=== PATIENT | female | born 1945 | race Caucasian/White ===

== ENCOUNTER 2020-05-13 18:28 | Inpatient (IN) | payer MEDICARE ==
[~2020-05-13] VITALS: Ht 142.2 cm; Wt 72.8 kg
[~2020-05-13 18:28] MED LIST: ALLEGRA180 MG PO; CALCITRIOL PO; CALTRATE-600 W600 MG PO; CARAFATE S1 GM/10 ML PO; CLONAZEPAM1 MG PO; CYMBALTA; D-31000 IU PO; DESYREL DIVIDO150 M1 PO; FEXOFENADINE180 MG PO; FLEXERIL10 MG PO; HYDROXYZINE50 MG PO; LASIX 20MG TABL20 MG PO; LASIX 40MG TABL40 MG PO; LEVAQUIN 5500 MG/TA1 PO; LEVOTHROID0.088 MG PO; LORTAB 10/500 51 TAB PO; LORTAB 7.5/5001 TAB; MECLIZINE25 MG PO; METHADONE H10 MG/TAB PO; MULTIPLE VITAMI1 TAB PO; MVI PO; NEURONTIN300 MG/CAP PO; NEXIUM 40MG40 MG PEG; NEXIUM 40MG40 MG PO; NORVASC 10MG10 MG PO; NORVASC 5MG5 MG/TAB PO; PREDNISONE20 MG PO; PRIL40 PO; PRILOSEC40 MG PO; PRISTIQ100 MG PO; PROTONIX40 MG/Pack PO; REGLAN 10MG10 MG/TAB PO; RELAFEN750 MG PO; SIMVASTATIN40 MG PO; SODIUM BICARBO650 MG PO; SUPER B COMPLEX1 TA2 PO; SYNTHROID0.112 MG/T PO; TOBRADEX EYE DRO5 ML OP; TRILIPIX45 MG PO; TUMS ULTRA ST1000 MG PO; TYLENOL 325MG325 MG PO; TYLENOL 500MG500 MG PO; ULTRAM 50MG TAB50 MG PO; VICODIN ES PO; VITAMIN D1000 IU PO; VOLTAREN GEL 1%1 TU TP; WELCHOL 625MG625 MG PO
--- NOTE | 2020-05-14 09:00 | NUR ---
Patient arrived to the floor at this time. She is alert and oriented at this time. No complaints other than mild pain which she request tylenol for. States that she wants to be in her own night gown, I stated that this was fine. SHe is able to get around on her own, states she is independent at home. IV started in her right FA, as left was vein mapped for possible vistula placement. Swelling is evident. Will continue to monitor. Call light is in reach.
[2020-05-14 10:04] LABS: BASO # 0.1 (0.0-0.2); EOS # 0.4 (0.0-0.7); EOS % 7.1 % (0-4.0); GRAN # 3.8 (1.4-6.5); GRAN % 65.8 % (42.2-75.2); LYMPH % 17.4 % (20.0-51.0); MEAN CELL VOLUME 99 fl (80.0-100.0); MEAN CORPUSCULAR HGB CONC 31 g/dl (33.0-37.0); MEAN PLATELET VOLUME 10.7 fl (7.4-10.4); MONO # 0.5 (0.1-0.6); MONO % 8.4 % (1.7-9.3); PLATELET COUNT 164 K/mm3 (130-400); RED BLOOD COUNT 2.25 M/mm3 (4.10-5.30); REDCELL DISTRIBUTION WIDTH-CV 14.7 % (11.5-14.5)
[2020-05-14] MEDS ORDERED: TYLENOL 500MG500 MG PO (10:04)
[2020-05-14] MEDS ORDERED: NORVASC 5MG5 MG/TAB PO (10:07)
[2020-05-14] MEDS ORDERED: CEFTIN 250250 MG/TAB PO (10:10)
[2020-05-14] MEDS ORDERED: LASIX 20MG TABL20 MG PO (10:12)
[2020-05-14] MEDS ORDERED: ANTI-DIARRHEAL2 MG PO (10:14)
[2020-05-14 10:15] LABS: ALBUMIN 3.1 gm/dL (3.5-5.0); BILIRUBIN,TOTAL 0.2 mg/dL (0.0-1.0); CALCIUM 7.3 mg/dL (8.4-10.2); CREATININE, serum 5.89 (0.52-1.25); PHOSPHOROUS 7.5 mg/dL (2.5-4.5); POTASSIUM 4.5 mmol/L (3.4-5.0)
[2020-05-14] MEDS ORDERED: SODIUM BICARBO650 MG PO (10:16)
[2020-05-14 10:20] LABS: HEMATOCRIT 22.3 % (37.0-47.0); MEAN CORPUSCULAR HEMOGLOBIN 31 pg (27.0-31.0)
[2020-05-14 10:21] LABS: HEMOGLOBIN 6.9 g/dl (12.5-16.0)
[2020-05-14 11:06] VITALS: BP 166/73; PULSE 73; TEMP 98.6
[2020-05-14 11:45] LABS: IRON,SERUM 55 ug/dL (35-150)
[2020-05-14 11:51] LABS: TOTAL IRON BINDING CAPACITY 283 ug/dL (265-497)
[2020-05-14 15:19] VITALS: BP 174/79; PULSE 77; TEMP 98.6
--- NOTE | 2020-05-14 17:27 | NUR ---
Patient has had a good day, rested for most of it. no complaints of discomfort. IV site remains CD&I. Bumex drip running at 5 ml/hr, no issues. She is aware of her fluid restriction and manages this. Will continue to monitor. Call light is in reach.
[2020-05-14 20:04] VITALS: BP 165/69; PULSE 82; TEMP 98.9
--- NOTE | 2020-05-14 21:35 | NUR ---
Pt assessment completed and documented. Pt sleeping when RN entered room. Pt alert and oriented x4. Complaints of generalized pain. Scheduled tylenol q6hr. Pt denies need for additional pain medication at this time. IV bumex infusing per orders. Pt refusing to wear hospital socks or shoes with transfers stating she feels safer with bare feet. Pt denies any needs/concerns. Call light within reach. Will continue to monitor.
[2020-05-14 23:11] VITALS: BP 157/64; PULSE 78; TEMP 98.9
[2020-05-15] VITALS (10 sets, daily range): BP systolic 150–200; BP diastolic 61–86; PULSE 67–78; TEMP 97.4–98.8
--- NOTE | 2020-05-15 06:05 | NUR ---
Pt currently sitting up in bed playing game on cell phone. Scheduled tylenol given throughout the night for generalized pain. Bumex infusing per orders to right forearm IV. Pt denies any needs/concerns. Call light within reach
[2020-05-15] MEDS ORDERED: TOBRADEX EYE DRO5 ML OP (08:41)
--- NOTE | 2020-05-15 09:29 | NUR ---
Pt assessment completed and charted, medications administered per sep. Pt is A&O, independent in room, on room air, breathing is even and unlabored. Pt c/o of general/chronic pains "all over", receiving tylenol PRN Q6 per sep. pt denies SOB, N/V/D. Pt states she takes immodium regularly, had a BM this morning and it was formed. Pt states her breathing feels much better. BLE edema 1-2+, feet 2-3+ edema but has improved per pt. Pulses strong bilaterally, pedal pulses present, HRRR. LS cta, BS active. RFA IV w/ bumex gtt at 5ml/hr. Fluid restriction discussed, pt verbalizes understanding, will need review. BP of 200/81 this morning, Michelle RN w/ Gian aware, hydralazine PRN administered per sep. Will recheck BP. Pt denies chest pain, dizziness or other complaints at this time. Call light within reach.
[2020-05-15 10:04] LABS: BASO # 0.1 (0.0-0.2); EOS # 0.3 (0.0-0.7); EOS % 5.3 % (0-4.0); GRAN # 3.6 (1.4-6.5); GRAN % 61.8 % (42.2-75.2); LYMPH # 1.4 (1.2-3.4); LYMPH % 23.8 % (20.0-51.0); MEAN CELL VOLUME 98 fl (80.0-100.0); MEAN CORPUSCULAR HGB CONC 30 g/dl (33.0-37.0); MEAN PLATELET VOLUME 10.9 fl (7.4-10.4); MONO # 0.5 (0.1-0.6); MONO % 7.9 % (1.7-9.3); PLATELET COUNT 177 K/mm3 (130-400); RED BLOOD COUNT 2.27 M/mm3 (4.10-5.30); REDCELL DISTRIBUTION WIDTH-CV 14.8 % (11.5-14.5)
[2020-05-15 10:11] LABS: HEMATOCRIT 22.3 % (37.0-47.0); MEAN CORPUSCULAR HEMOGLOBIN 30 pg (27.0-31.0)
[2020-05-15 10:13] LABS: HEMOGLOBIN 6.7 g/dl (12.5-16.0)
[2020-05-15 10:15] LABS: ALBUMIN 2.8 gm/dL (3.5-5.0); CALCIUM 7.1 mg/dL (8.4-10.2); CREATININE, serum 6.15 (0.52-1.25); PHOSPHOROUS 7.4 mg/dL (2.5-4.5); POTASSIUM 4.3 mmol/L (3.4-5.0)
--- NOTE | 2020-05-15 10:29 | NUR ---
SW met with the patient to discuss discharge plan. The patient lives in [place] with her son, Elieser (ph#[phone]). She reports independence with ADLs and has a walker and electric scooter. Her primary care provider is ANGELINE Hayden and she receives her medications by delivery from [facility]. This SW witnessed the patient complete a DPOA-HC during her hospital stay in March. The patient designated her son, Elieser. The patient confirms that Elieser is her DPOA-HC. The patient's DPOA-HC is not in EMR. SW notified Medical Records. The patient's son does not have a vehicle. The patient states that she utilizes the [employer] bus. The patient plans to return home upon discharge. OT is recommending home with maybe home health. SW discussed home health with the patient and their benefits. The patient states that she had home health in the past and it was not helpful to her. She states that she is fine and does not want home health upon discharge. OMAR then contacted and reviewed the above information with the patient's son, Elieser. Elieser confirmed the above information and states that he does not have any concerns about the patient returning back home with him. Elieser states that he does have the patient's DPOA-HC at home. SW to continue to follow.
--- NOTE | 2020-05-15 10:35 | NUR ---
Critical lab value Hgb 6.7, decreased from yesterday called to CANDI truong who notified Dr. Springer.
--- NOTE | 2020-05-15 18:13 | NUR ---
Pt Nulecit started. Blood transfusion to start after on nightshift. Hydralazine administered per mar w/ SBP at 191.
--- NOTE | 2020-05-15 22:30 | NUR ---
Pt assessment completed and documented. Pt resting in bed at this time. Alert and oriented x4. Pt reporting generalized pain. Pt tolerating blood transfusion without complications. Pt denies any needs/ concerns. Call light within reach. Will continue to monitor.
[2020-05-16] VITALS (14 sets, daily range): BP systolic 135–182; BP diastolic 57–75; PULSE 60–70; TEMP 97.3–97.9
--- NOTE | 2020-05-16 01:30 | NUR ---
First unit of blood transfused without complications. VSS. Will administer second unit at this time per orders.
[2020-05-16 06:58] LABS: BASO # 0.1 (0.0-0.2); EOS # 0.3 (0.0-0.7); EOS % 5.4 % (0-4.0); GRAN # 4.1 (1.4-6.5); GRAN % 64.6 % (42.2-75.2); LYMPH # 1.3 (1.2-3.4); LYMPH % 20.1 % (20.0-51.0); MEAN CELL VOLUME 94 fl (80.0-100.0); MEAN CORPUSCULAR HGB CONC 32 g/dl (33.0-37.0); MEAN PLATELET VOLUME 10.7 fl (7.4-10.4); MONO # 0.5 (0.1-0.6); MONO % 8.4 % (1.7-9.3); PLATELET COUNT 160 K/mm3 (130-400); RED BLOOD COUNT 3.02 M/mm3 (4.10-5.30); REDCELL DISTRIBUTION WIDTH-CV 15.3 % (11.5-14.5)
[2020-05-16 07:00] LABS: HEMATOCRIT 28.3 % (37.0-47.0); HEMOGLOBIN 9.1 g/dl (12.5-16.0); MEAN CORPUSCULAR HEMOGLOBIN 30 pg (27.0-31.0)
[2020-05-16 07:12] LABS: INR 0.9 (0.8-3.0); PROTHROMBIN TIME 10.5 SECONDS (9.7-12.8)
[2020-05-16 07:13] LABS: PARTIAL THROMBOPLASTIN TIME 36.8 SECONDS (26.0-37.0)
[2020-05-16 07:14] LABS: ALBUMIN 2.7 gm/dL (3.5-5.0); CALCIUM 7.5 mg/dL (8.4-10.2); CREATININE, serum 5.7 (0.52-1.25); PHOSPHOROUS 7.4 mg/dL (2.5-4.5); POTASSIUM 4.3 mmol/L (3.4-5.0)
--- NOTE | 2020-05-16 08:02 | NUR ---
Report given to CANDI Arias
--- NOTE | 2020-05-16 11:01 | NUR ---
Pt assessment completed and charted. Medications administered this morning per sep w/ sips of water. Pt c/o general/"normal" aches and pains, takes tylenol regularly, given PRN per SEP. Pt denies dizziness, SOB, N/V/D, chest pain, abdominal pain, numbness or tingling. Pulses strong bilaterally, HRRR, LS cta, BS active. Pt on room air, breathing is even and unlabored.Pt has 2 22G RFA INT IVs that both flush well. Hgb improved from last night and pt tolerated blood transfusions well. I&Os being tracked and recorded. Pt to have dialysis cath and fistula placed this afternoon. Consent signed. Pt frustrated that she feels she "didn't know the plan until last minute". Pt expresses concerns about transportation to and from dialysis. Will discuss w/ SW. No other needs at this time. Call light within reach.
--- NOTE | 2020-05-16 12:29 | NUR ---
Pt SBP 178, hydralazine PRN administered per mar. Pt to have dialysis cath/fistula palcement this afternooon, preop fluids hung to RFA, no issues. CANDI Chacko w/ Dr. Springer, in to assess patient. All questions answered. No further needs.
--- NOTE | 2020-05-16 13:15 | NUR ---
Pt down for procedure at this time, via bed w/ Jose Maria from surgery
[2020-05-16] MEDS ORDERED: NORCO 325 MG-51 TAB PO (16:11)
--- NOTE | 2020-05-16 17:15 | NUR ---
Pt back from procedure at this time, A&O, c/o some tenderness to rt chest where RIJ dialysis cath was placed. Site is CDI, covered w/ bandage. LFA fistula, no issues, Post op vitals in progress. Stable at this time. pt tolerating liquids fine, called for dinner tray, awaiting for it to arrive.
--- NOTE | 2020-05-16 18:16 | NUR ---
Called for tray again, dining services aware pt has not received tray yet.
--- NOTE | 2020-05-16 20:00 | NUR ---
BANDAGED SITE ON RIGHT UPPER CHEST FOR FISTULA PLACEMENT, BANDAGED CLEAN AND SECURED
[2020-05-17] VITALS: BP 154/63; PULSE 66; TEMP 97.6
[2020-05-17 03:57] VITALS: BP 141/59; PULSE 74; TEMP 98.5
--- NOTE | 2020-05-17 07:50 | NUR ---
PT PLEASANT, AOX4, PT RECIEVED BREAKFAST, PT REPORTS MILD DISCOMFORT AT DIALYSIS CATH SITE. SOME DRIED DRAINAGE NOTED ON DRESSING. PT ASSESSMENT PERFORMED. IV SITES BOTH CDI WITH NO ERYTHEMA.
[2020-05-17 08:10] LABS: BASO # 0.1 (0.0-0.2); BASO % 0.8 % (0.0-2.0); EOS # 0.3 (0.0-0.7); EOS % 5.4 % (0-4.0); GRAN # 4.3 (1.4-6.5); GRAN % 67.3 % (42.2-75.2); LYMPH # 1.2 (1.2-3.4); LYMPH % 19.1 % (20.0-51.0); MEAN CELL VOLUME 95 fl (80.0-100.0); MEAN CORPUSCULAR HGB CONC 32 g/dl (33.0-37.0); MEAN PLATELET VOLUME 11.3 fl (7.4-10.4); MONO # 0.5 (0.1-0.6); MONO % 7.1 % (1.7-9.3); PLATELET COUNT 187 K/mm3 (130-400); RED BLOOD COUNT 2.99 M/mm3 (4.10-5.30); REDCELL DISTRIBUTION WIDTH-CV 15.9 % (11.5-14.5)
[2020-05-17 08:12] LABS: HEMATOCRIT 28.4 % (37.0-47.0); HEMOGLOBIN 9.1 g/dl (12.5-16.0); MEAN CORPUSCULAR HEMOGLOBIN 30 pg (27.0-31.0)
[2020-05-17 08:24] LABS: ALBUMIN 2.6 gm/dL (3.5-5.0); CALCIUM 7.7 mg/dL (8.4-10.2); CREATININE, serum 5.69 (0.52-1.25); PHOSPHOROUS 7.6 mg/dL (2.5-4.5); POTASSIUM 4.6 mmol/L (3.4-5.0)
--- NOTE | 2020-05-17 08:30 | NUR ---
PT TAKEN TO DIALYSIS VIA WHEELCHAIR. PT REFUSED NONSKID SOCKS.
--- NOTE | 2020-05-17 11:30 | NUR ---
PT RETURNED FROM DIALYSIS, NORVASC GIVEN, PEPSI BROUGHT IN, NO OTHER NEEDS.
[2020-05-17 12:09] VITALS: BP 177/72; PULSE 69; TEMP 98.4
--- NOTE | 2020-05-17 12:19 | NUR ---
GINO GUPTA NOTIFIED OF HIGH BP. APRESOLINE GIVEN. NO OTHER NEEDS.
[2020-05-17 13:42] VITALS: BP 149/62
[2020-05-17 16:47] VITALS: BP 157/63; PULSE 74; TEMP 98.9
--- NOTE | 2020-05-17 17:43 | NUR ---
PT HAD FIRST DIALYSIS TREATMENT TODAY, REPORTED SOME CRAMPING RELIEVED WITH TYLENOL. PT AOX4, PLEASANT, HAD NAP IN AFTERNOON, HAS GOOD I/O. NO OTHER NEEDS AT THIS TIME. HYDRALAZINE GIVEN ONCE DURING SHIFT.
[2020-05-17 19:32] VITALS: BP 164/79; PULSE 79; TEMP 99.2
[2020-05-17 19:44] LABS: HEPATITIS B SURFACE ANTIBODY <2.0 (()); HEPATITIS B SURFACE ANTIGEN Negative (Negative); HEPATITIS C VIRUS ANTIBODY Negative (Negative)
--- NOTE | 2020-05-17 21:00 | NUR ---
PT A/O X4, WITH HOB ELEVATED TO 45 DEGREE ANGLE, HAS PAIN ON LEFT SIDE FROM SURGERY RATED AT 7/10, GAVE TYLENOL. PT NEEDS MET. CALL LIGHT WITHIN REACH.
[2020-05-18] VITALS (7 sets, daily range): BP systolic 134–200; BP diastolic 61–78; PULSE 65–73; TEMP 98.2–98.7
--- NOTE | 2020-05-18 06:45 | NUR ---
PT HAD ONLY SLEPT ABOUT THREE HOURS LAST NIGHT AND WAS UP SINCE ABOUT 0300. PT REFUSES TO DRINK WATER AND ONLY WANTS TO DRINK PEPSI. PT'S NEEDS MET AND NO FURTHER NEEDS AT THIS TIME. CALL LIGHT WITHIN REACH.
[2020-05-18 06:58] LABS: BASO # 0.1 (0.0-0.2); BASO % 0.9 % (0.0-2.0); EOS # 0.3 (0.0-0.7); EOS % 5.7 % (0-4.0); GRAN # 3.5 (1.4-6.5); GRAN % 62.4 % (42.2-75.2); LYMPH # 1.2 (1.2-3.4); LYMPH % 21.9 % (20.0-51.0); MEAN CELL VOLUME 97 fl (80.0-100.0); MEAN CORPUSCULAR HGB CONC 32 g/dl (33.0-37.0); MONO # 0.5 (0.1-0.6); MONO % 8.7 % (1.7-9.3); PLATELET COUNT 187 K/mm3 (130-400); RED BLOOD COUNT 3.12 M/mm3 (4.10-5.30); REDCELL DISTRIBUTION WIDTH-CV 15.7 % (11.5-14.5)
[2020-05-18 07:05] LABS: ALBUMIN 2.8 gm/dL (3.5-5.0); CALCIUM 7.8 mg/dL (8.4-10.2); CREATININE, serum 4.45 (0.52-1.25); HEMATOCRIT 30.1 % (37.0-47.0); HEMOGLOBIN 9.6 g/dl (12.5-16.0); MEAN CORPUSCULAR HEMOGLOBIN 31 pg (27.0-31.0); POTASSIUM 4.4 mmol/L (3.4-5.0)
--- NOTE | 2020-05-18 08:15 | NUR ---
PT PLEASANT, AOX4, PT ATE 95% OF BREAKFAST, VITALS TAKEN, MEDS GIVEN, NORVASC HELD UNTIL AFTER DIALYSIS, ASSESSMENT PERFORMED, PT DENIES PAIN/DISCOMFORT, NO OTHER NEEDS AT THIS TIME.
--- NOTE | 2020-05-18 09:26 | NUR ---
PT TAKEN TO DIALYSIS VIA WHEELCHAIR.
--- NOTE | 2020-05-18 14:10 | NUR ---
BP STILL ELEVATED AFTER HYDRALAZINE, WILL REASSESS IN ANOTHER 30-45MIN.
--- NOTE | 2020-05-18 15:40 | NUR ---
PT FILLED HAT WITH LIGHT BROWN DIARRHEA. PT THEN HAD MORE DIARRHEA AFTERWARDS UNMEASURED. IMMODIUM GIVEN.
--- NOTE | 2020-05-18 17:30 | NUR ---
PT PLEASANT, AOX4, PT REPORTING PAIN IN L LEG, TYLENOL AND NORCO GIVEN. PT HAD DIARRHEA X2 BUT STOPPED WITH IMMODIUM. PT HAD DIALYSIS TODAY WITH 1.1L REMOVED. PLAN TO DC TOMORROW. NO OTHER NEEDS AT THIS TIME.
--- NOTE | 2020-05-18 18:07 | NUR ---
food warmed up for pt, removed RFA IV per pt request.
--- NOTE | 2020-05-18 20:35 | NUR ---
Pt assessment completed and documented. Pt resting in bed at this time playing a game on her phone. PT alert and oriented x4. Denies pain. Dialysis cath to right chest CDI. Unable to palpate or auscultate fisutal to left forearm. tube drawing supervisor in room with RN to assess fistula with doppler. Unable to assess with doppler. Dr. Springer notified with no new orders given. INT to right forearm CDI. Pt denies any other needs/concerns at this time. Call light within reach. Will continue to monitor
[2020-05-19] VITALS: BP 157/60; PULSE 65; TEMP 98.3
[2020-05-19 04:00] VITALS: BP 169/70; PULSE 65; TEMP 98.1
--- NOTE | 2020-05-19 05:30 | NUR ---
Pt states she was able to get some good sleep until midnight vital signs. States she has been awake since. PRN tylenol and norco given per orders for leg pain. PRN hydralazine given x2 per orders for elevated BP. PT currently resting in bed. Denies any other needs. Call light within reach
[2020-05-19 06:47] LABS: BASO # 0.1 (0.0-0.2); BASO % 1.1 % (0.0-2.0); EOS # 0.3 (0.0-0.7); EOS % 5.7 % (0-4.0); GRAN # 2.9 (1.4-6.5); GRAN % 51.2 % (42.2-75.2); LYMPH # 1.8 (1.2-3.4); LYMPH % 31.4 % (20.0-51.0); MEAN CELL VOLUME 97 fl (80.0-100.0); MEAN CORPUSCULAR HGB CONC 31 g/dl (33.0-37.0); MEAN PLATELET VOLUME 10.8 fl (7.4-10.4); MONO # 0.6 (0.1-0.6); MONO % 10.4 % (1.7-9.3); PLATELET COUNT 177 K/mm3 (130-400); RED BLOOD COUNT 3.22 M/mm3 (4.10-5.30); REDCELL DISTRIBUTION WIDTH-CV 15.4 % (11.5-14.5)
[2020-05-19 06:54] LABS: HEMATOCRIT 31.1 % (37.0-47.0); HEMOGLOBIN 9.7 g/dl (12.5-16.0); MEAN CORPUSCULAR HEMOGLOBIN 30 pg (27.0-31.0)
[2020-05-19 07:03] LABS: ALBUMIN 2.8 gm/dL (3.5-5.0); CREATININE, serum 3.57 (0.52-1.25); POTASSIUM 4.3 mmol/L (3.4-5.0)
[2020-05-19 07:07] VITALS: BP 162/62; PULSE 64; TEMP 98.1
[2020-05-19] MEDS ORDERED: NORVASC 10MG10 MG PO (11:17)
[2020-05-19] MEDS ORDERED: LASIX 40MG TABL40 MG PO (11:20)
[2020-05-19] MEDS ORDERED: PHOS LO PO (11:22)
[2020-05-19] MEDS ORDERED: COZAAR 50MG50 MG/TAB PO (11:23)
[2020-05-19 11:34] VITALS: BP 167/77; PULSE 76; TEMP 98.6
--- NOTE | 2020-05-19 11:50 | NUR ---
OMAR collaborated with CANDI Martinez, with Dr. Springer. The patient is going to need transportation home today and transportation back home from dialysis tomorrow. The patient is planning on taking the fixed scheduled route to dialysis. Michelle had provided the patient with an application to the [employer] program. The patient completed the [employer] Program application. OMAR faxed the application to [facility] [employer]. OMAR then contacted scheduling and dispatch at [facility] and scheduled the patient a demand ride home from the hospital today. [employer] is to arrive at the patient entrance from [phone]. OMAR also scheduled the patient a demand ride home tomorrow from dialysis at [phone]. OMAR updated Michelle, the patient's RN, and the patient on the above information. The patient verbalized understanding. OMAR then contacted the patient's son, Elieser, and reviewed the above information with him. Elieser verbalized understanding. He states that he took today off from work and will be home when the patient arrives today. The patient is to discharge back home with her son today, 05/19. No additional needs at this time.
--- NOTE | 2020-05-19 13:19 | NUR ---
Pt assessment completed and charted, medications administered per sep. Pt A&O, independent in room, in room air, breathing is even and unlabored, denies SOB, N/V/D, chest pain, dizziness, palpitations. BS active X4, pulses strong bilaterally. HR travon, on tele, sinus. LS cta. BLE 1-2+, improving. Pt has Rt chest dialysis cath in place, covered w/ gauze, CDI, no issues. Pt has LFA fistula that was placed 05/16/2020, bruit auscultated w/ doppler, thrill not felt. Per CANDI Martinez w/ Dr. alexander, thrill and bruit both present. Pt discharged, all questions answered, no further needs. RFA INT IV dc'd w/ catheter tip intact. Pt escorted out via personal WC w/ OLMAN Noble to patience entrance for [employer] bus grain picker.
== END 2020-05-19 13:25 | disposition home or self-care (01) | DRG 674 ==
LOC: MEDICAL 05-14 08:56
PROVIDERS: Surgery; ADMIT Internal Medicine Nephrology
PROC: 02H633Z Insertion of Infusion Device into Right Atrium, Percutaneous Approach (ICD-10-PCS; 2020-05-16)
PROC: 5A1D70Z Performance of Urinary Filtration, Intermittent, Less than 6 Hours Per Day (ICD-10-PCS; 2020-05-16)
PROC: 031C0ZF Bypass Left Radial Artery to Lower Arm Vein, Open Approach (ICD-10-PCS; principal; 2020-05-16 13:30)
PROC: 0JH63XZ Insertion of Tunneled Vascular Access Device into Chest Subcutaneous Tissue and Fascia, Percutaneous Approach (ICD-10-PCS; 2020-05-16 13:30)
DX: N17.0 Acute kidney failure with tubular necrosis (principal); E87.2 Acidosis; I12.0 Hypertensive chronic kidney disease with stage 5 chronic kidney disease or end stage renal disease; E03.9 Hypothyroidism, unspecified; N18.6 End stage renal disease; E78.5 Hyperlipidemia, unspecified; M79.7 Fibromyalgia; F41.9 Anxiety disorder, unspecified; G40.909 Epilepsy, unspecified, not intractable, without status epilepticus; E66.3 Overweight; D63.1 Anemia in chronic kidney disease; F32.9 Major depressive disorder, single episode, unspecified; E83.39 Other disorders of phosphorus metabolism; Z86.73 Personal history of transient ischemic attack (TIA), and cerebral infarction without residual deficits; Z88.1 Allergy status to other antibiotic agents; Z88.0 Allergy status to penicillin
CPT/HCPCS: J1644; J2704; J2916; J3010; J7030; P9016; Q5105; Q5106

== ENCOUNTER → 2020-07-04 | Outpatient (CLI) | payer MEDICARE ==
[~2020-07-04] MED LIST changes: +ANTI-DIARRHEAL2 MG PO; +CEFTIN 250250 MG/TAB PO; +COZAAR 50MG50 MG/TAB PO; +NORCO 325 MG-51 TAB PO; +PHOS LO PO
== END ==
LOC: COL.VAS 10:45
DX: N18.4 Chronic kidney disease, stage 4 (severe) (principal)

== ENCOUNTER → 2020-07-23 | Outpatient (CLI) | payer MEDICARE | LOC: COL.VAS 07-17 14:30 | DX: N18.4 Chronic kidney disease, stage 4 (severe) (principal) ==

== ENCOUNTER 2020-08-01 10:29 | Day surgery (SDC) | payer MEDICARE ==
[~2020-08-01] VITALS: Ht 142.2 cm; Wt 52.7 kg
[2020-08-01 11:24] VITALS: BP 160/63; PULSE 66; TEMP 97.6
[2020-08-01] MEDS ORDERED: PHOS LO PO (11:54)
[2020-08-01] MEDS ORDERED: LASIX 40MG TABL40 MG PO (11:56)
[2020-08-01] MEDS ORDERED: NORCO 325 MG-51 TAB PO ×2 (11:58→16:37)
[2020-08-01] MEDS ORDERED: ULTRAM 50MG TAB50 MG PO ×2 (12:00→16:37)
[2020-08-01] MEDS ORDERED: COZAAR 50MG50 MG/TAB PO (12:02)
[2020-08-01] MEDS ORDERED: NORVASC 10MG10 MG PO (12:03)
[2020-08-01 12:05] LABS: CALCIUM 7.9 mg/dL (8.4-10.2); CREATININE, serum 3.73 (0.52-1.25); POTASSIUM 5.1 mmol/L (3.4-5.0)
[2020-08-01] MEDS ORDERED: TUMS ULTRA1000 MG PO (12:06)
--- NOTE | 2020-08-01 12:13 | NUR ---
IV STARTED BY AMAYA MONTGOMERY (#20G EJ ON LEFT)
[2020-08-01 16:14] VITALS: BP 127/66; PULSE 74; TEMP 98
--- NOTE | 2020-08-01 16:14 | NUR ---
Pt returns from OR procedure via cart and STRAIGHT KNIFE CUTTER MACHINE and RN assist. Report received, monitors on, and alarms set. Call light within reach. Pt alert and responding appropriately. Pt requests Sprite and applesauce with sugar. Pt denies pain or nausea.
--- NOTE | 2020-08-01 16:20 | NUR ---
CANDI Pang, auscultates and palpates for the fistula whirl. Whirl auscultated, but not felt with palpation.
[2020-08-01 16:30] VITALS: BP 137/64; PULSE 71
--- NOTE | 2020-08-01 16:30 | NUR ---
Pt taking food and drink well. Pt needs to take the [employer] bus home, and the last pickup is at 1700. Pt is understanding, and has no complications.
[2020-08-01 16:45] VITALS: BP 125/61; PULSE 72
--- NOTE | 2020-08-01 16:55 | NUR ---
Discharge instructions given to pt. All questions answered to her satisfaction. Handed to her are a thank you card, discharge instructions, diagnosis information, a follow-up appointment sheet, and a patient health summary.
--- NOTE | 2020-08-01 17:05 | NUR ---
After getting dressed, pt transports self via self-propelled wheelchair to the ED entrance to await [employer] bus. This RN accompanies her.
--- NOTE | 2020-08-01 17:15 | NUR ---
CRISTY hernandez here to bulk picker pt.
== END 2020-08-01 17:15 | disposition home or self-care (01) ==
LOC: SDCO 10:29
PROVIDERS: Nurse Anesthetist, Certified Registered
DX: I13.0 Hypertensive heart and chronic kidney disease with heart failure and stage 1 through stage 4 chronic kidney disease, or unspecified chronic kidney disease (principal); N18.6 End stage renal disease; E78.00 Pure hypercholesterolemia, unspecified; E78.5 Hyperlipidemia, unspecified; M19.90 Unspecified osteoarthritis, unspecified site; F32.9 Major depressive disorder, single episode, unspecified; F41.9 Anxiety disorder, unspecified; G89.29 Other chronic pain; D63.1 Anemia in chronic kidney disease; G25.81 Restless legs syndrome; Z86.73 Personal history of transient ischemic attack (TIA), and cerebral infarction without residual deficits; Z88.8 Allergy status to other drugs, medicaments and biological substances
CPT/HCPCS: J0690; J1644; J2704

== ENCOUNTER → 2020-08-15 | Outpatient (CLI) | payer MEDICARE ==
[~2020-08-15] MED LIST changes: +TUMS ULTRA1000 MG PO
== END ==
LOC: COL.VAS 08-07 12:45
DX: I82.409 Acute embolism and thrombosis of unspecified deep veins of unspecified lower extremity (principal)

== ENCOUNTER → 2020-10-29 | Outpatient (CLI) | payer MEDICARE ==
--- NOTE | 2020-10-24 09:56 | NUR ---
PATIENT HUNG UP ON ME BEFORE ANSWERING X2
[~2020-10-29] VITALS: Ht 142.2 cm; Wt 53.5 kg
[~2020-10-29] MED LIST changes: +ANTACID ULTRA1000 M1; +HAIRSKINNAILS PO; +NORVASC2.5 MG PO; +ULTRAM ER100 MG PO
[2020-10-29 09:07] VITALS: PULSE 62
== END ==
LOC: COL.RAD 08:20
DX: Z49.01 Encounter for fitting and adjustment of extracorporeal dialysis catheter (principal); N18.6 End stage renal disease

== ENCOUNTER 2021-01-19 10:27 | Emergency (ER) | payer MEDICARE ==
[~2021-01-19] VITALS: Ht 152.4 cm; Wt 52.7 kg
[~2021-01-19 10:27] MED LIST changes: -ANTACID ULTRA1000 M1; -HAIRSKINNAILS PO; -ULTRAM ER100 MG PO
[2021-01-19 10:28] VITALS: TEMP 97.3
[2021-01-19 11:03] LABS: BASO # 0.1 (0.0-0.2); BASO % 0.9 % (0.0-2.0); EOS # 0.4 (0.0-0.7); EOS % 6.5 % (0-4.0); GRAN # 3.5 (1.4-6.5); GRAN % 62.9 % (42.2-75.2); HEMATOCRIT 37.6 % (37.0-47.0); HEMOGLOBIN 11.7 g/dl (12.5-16.0); LYMPH # 1.2 (1.2-3.4); LYMPH % 21.7 % (20.0-51.0); MEAN CELL VOLUME 102 fl (80.0-100.0); MEAN CORPUSCULAR HEMOGLOBIN 32 pg (27.0-31.0); MEAN CORPUSCULAR HGB CONC 31 g/dl (33.0-37.0); MEAN PLATELET VOLUME 10.5 fl (7.4-10.4); MONO # 0.4 (0.1-0.6); MONO % 7.6 % (1.7-9.3); PLATELET COUNT 183 K/mm3 (130-400); RED BLOOD COUNT 3.69 M/mm3 (4.10-5.30)
[2021-01-19 11:06] LABS: ALBUMIN 3.8 gm/dL (3.5-5.0); BILIRUBIN,TOTAL 0.6 mg/dL (0.0-1.0); CREATININE, serum 4.27 (0.52-1.25); POTASSIUM 4.2 mmol/L (3.4-5.0)
[2021-01-19] MEDS ORDERED: NORCO 325 MG-51 TAB PO (14:49)
[2021-01-19 15:47] VITALS: BP 167/83; PULSE 70
== END 2021-01-19 15:49 | disposition home or self-care (01) ==
LOC: COL.ER 10:27
PROVIDERS: Nurse Practitioner Family
DX: S32.591A Other specified fracture of right pubis, initial encounter for closed fracture (principal); S32.511A Fracture of superior rim of right pubis, initial encounter for closed fracture; S22.31XA Fracture of one rib, right side, initial encounter for closed fracture; S40.261A Insect bite (nonvenomous) of right shoulder, initial encounter; I13.2 Hypertensive heart and chronic kidney disease with heart failure and with stage 5 chronic kidney disease, or end stage renal disease; N18.6 End stage renal disease; I50.9 Heart failure, unspecified; E03.9 Hypothyroidism, unspecified; M79.7 Fibromyalgia; G89.29 Other chronic pain; M54.9 Dorsalgia, unspecified; Z88.8 Allergy status to other drugs, medicaments and biological substances; Z99.2 Dependence on renal dialysis; Z79.890 Hormone replacement therapy; Z79.899 Other long term (current) drug therapy; W57.XXXA Bitten or stung by nonvenomous insect and other nonvenomous arthropods, initial encounter; W19.XXXA Unspecified fall, initial encounter; Y92.009 Unspecified place in unspecified non-institutional (private) residence as the place of occurrence of the external cause
CPT/HCPCS: J2405; J3010; J7030

== ENCOUNTER 2021-01-27 16:57 | Inpatient (IN) | payer MEDICARE ==
[~2021-01-27] VITALS: Ht 152.4 cm; Wt 57.2 kg
[2021-01-28 05:35] LABS: BASO # 0.1 (0.0-0.2); BASO % 1.1 % (0.0-2.0); EOS # 0.6 (0.0-0.7); EOS % 8.7 % (0-4.0); GRAN % 55.5 % (42.2-75.2); HEMOGLOBIN 10.9 g/dl (12.5-16.0); LYMPH # 1.9 (1.2-3.4); LYMPH % 26.7 % (20.0-51.0); MEAN CELL VOLUME 102 fl (80.0-100.0); MEAN CORPUSCULAR HEMOGLOBIN 32 pg (27.0-31.0); MEAN CORPUSCULAR HGB CONC 31 g/dl (33.0-37.0); MEAN PLATELET VOLUME 9.9 fl (7.4-10.4); MONO # 0.6 (0.1-0.6); MONO % 7.6 % (1.7-9.3); PLATELET COUNT 227 K/mm3 (130-400); RED BLOOD COUNT 3.43 M/mm3 (4.10-5.30); REDCELL DISTRIBUTION WIDTH-CV 13.5 % (11.5-14.5)
[2021-01-28 05:36] LABS: HEMATOCRIT 35.1 % (37.0-47.0)
[2021-01-28 05:48] LABS: ALBUMIN 3.3 gm/dL (3.5-5.0); BILIRUBIN,TOTAL 0.2 mg/dL (0.0-1.0); CALCIUM 8.8 mg/dL (8.4-10.2); CREATININE, serum 2.67 (0.52-1.25); POTASSIUM 4.5 mmol/L (3.4-5.0); TOTAL PROTEIN 6.5 gm/dL (6.4-8.2)
[2021-01-28] MEDS ORDERED: NORVASC 5MG5 MG/TAB PO (06:21)
[2021-01-28] MEDS ORDERED: DESYREL DIVIDO150 M1 PO (06:22)
[2021-01-28] MEDS ORDERED: HAIRSKINNAILS PO (06:26)
[2021-01-28] MEDS ORDERED: ANTACID ULTRA1000 M1 (06:32)
[2021-01-28] MEDS ORDERED: ULTRAM ER100 MG PO (06:35)
--- NOTE | 2021-01-28 15:19 | NUR ---
REPORT RCVD FROM ER NURSE.
[2021-01-28 17:06] VITALS: BP 193/74; PULSE 81; TEMP 98.6
--- NOTE | 2021-01-28 18:00 | NUR ---
Patient is alert and oriented x4, vital signs stable, no nausea or vomiting. Her pain is 10 out of 10 in her left hip. No hematomas. The left ankle presents some imflamation. Tromadol provided. Patient had an episode of anxiety and pull out the bracelet of fall and id. She is calm now. Patient has redness in her bottom, no openings. Patient is able to stand by herself and needs help of one. No further needs at this time.
[2021-01-28 19:50] VITALS: BP 183/85; PULSE 104; TEMP 98.3
[2021-01-28 23:05] VITALS: BP 170/62; PULSE 73; TEMP 98
[2021-01-29 03:44] VITALS: BP 153/73; PULSE 71; TEMP 98.5
--- NOTE | 2021-01-29 05:33 | NUR ---
PT HAD UNEVENTFUL NIGHT, BP REMAINED ELEVATED PT ASYMPTOMATIC. MEDICATION ADMINISTERED ORDERED. PT EXPRESSES NO ADDITIONAL NEEDS AT THIS TIME. CALL LIGHT WITHIN REACH.
[2021-01-29 07:40] VITALS: BP 169/78; PULSE 76; TEMP 98.2
--- NOTE | 2021-01-29 08:15 | NUR ---
Shift assessment complete. Pt assisted to commode and back to bed SBA. Reports pain to right hip radiating down leg, tramadol given per orders. A&Ox4. Heart RRR. Lungs CTA. Denies other needs at this time. Scheduled for dialysis at 0830 this morning. Continuing to monitor.
--- NOTE | 2021-01-29 08:45 | NUR ---
Pt off unit for dialysis at this time.
[2021-01-29 10:36] LABS: BASO # 0.1 (0.0-0.2); BASO % 1.2 % (0.0-2.0); EOS # 0.6 (0.0-0.7); EOS % 9.1 % (0-4.0); GRAN # 3.5 (1.4-6.5); GRAN % 58.2 % (42.2-75.2); HEMOGLOBIN 10.3 g/dl (12.5-16.0); LYMPH # 1.5 (1.2-3.4); LYMPH % 24.8 % (20.0-51.0); MEAN CELL VOLUME 102 fl (80.0-100.0); MEAN CORPUSCULAR HEMOGLOBIN 32 pg (27.0-31.0); MEAN CORPUSCULAR HGB CONC 31 g/dl (33.0-37.0); MEAN PLATELET VOLUME 10.3 fl (7.4-10.4); MONO # 0.4 (0.1-0.6); MONO % 6.4 % (1.7-9.3); PLATELET COUNT 260 K/mm3 (130-400); RED BLOOD COUNT 3.23 M/mm3 (4.10-5.30); REDCELL DISTRIBUTION WIDTH-CV 13.7 % (11.5-14.5)
[2021-01-29 10:42] LABS: ALBUMIN 2.9 gm/dL (3.5-5.0); CALCIUM 8.5 mg/dL (8.4-10.2); CREATININE, serum 3.73 (0.52-1.25); PHOSPHOROUS 5.1 mg/dL (2.5-4.5); POTASSIUM 4.1 mmol/L (3.4-5.0)
[2021-01-29 12:36] VITALS: BP 182/84; PULSE 70; TEMP 99
--- NOTE | 2021-01-29 15:51 | NUR ---
SW met with the patient to discuss discharge plan. The patient lives in [place] with her son, Elieser (ph#[phone]). She reports independence with ADLs and has a walker and electric scooter. The patient and her son do not have a vehicle. The patient reports that she utilizes the [employer] bus for transportation and to dialysis. The patient's primary care provider is ANGELINE Montiel and she receives her medications by delivery from [facility]. She reports no difficulties obtaining her meds. The patient does not have a DPOA-HC in EMR. The patient reports that she has a DPOA-HC and designated her son, Elieser. This SW had completed and documented the patient completing a DPOA-HC during her hospital stay on 04/11/20. The patient states that she is not and that she has three children: Eliseer, Josh ([place]), and Josef ([place]). The patient had two recent falls. SW discussed post-acute rehab. The patient reports that therapy just worked with her and she did very well. She reports that she plans on returning home with her son, but would be interested in home health and chose [facility]. The patient reports that she will need transport home. SW attempted to contact Maura at [facility]. SW left her a voicemail and faxed over the referral. Awaiting screen. PT did work with the patient and recommend home with son. SW contacted the patient's son, Elieser, and reviewed d/c plan. Elieser was supportive of home health. He states that he believes he knows where a copy of the patient's DPOA-HC is at home and should be able to bring a copy of the document up to the hospital tomorrow. *Discharge plan: home with son and home health*
[2021-01-29 16:05] VITALS: BP 189/78; PULSE 67; TEMP 97.9
[2021-01-29 19:16] VITALS: BP 166/80; PULSE 75; TEMP 98.9
--- NOTE | 2021-01-29 22:01 | NUR ---
ALERT AND OX4. DENIES SOA, CHEST PAIN OR DIZZY. IS HAVING SOME BACK/HIP/LEG PAIN ON RT SIDE. TRAMDOL GIVEN ALONG W PM MEDS. PT REQ NOT TO BE WOKEN UP TONIGHT FOR VITAL OR AT ALL. EXPLAINED WILL BE DOING ROUNDS CHECKING ON HER SO DOOR KEPT OPEN. PT V/U AND WANTS US TO NOTE SHE IS REFUSING VITALS OVERNIGHT. [employer] UPDATED. POC DISCUSSED. NEEDS MET.
--- NOTE | 2021-01-30 05:03 | NUR ---
RESTED THROUGH THE NIGHT WITHOUT INCIDENT. NEEDS MET.
--- NOTE | 2021-01-30 07:32 | NUR ---
Shift assessment complete. Pt sitting up in bed, A&Ox4. Heart RRR. Lungs CTA. Small bruises to right hip/lower right abdomen. Pt reports 9/10 pain to this area and mild pain to lower back. Tramadol given per orders. Blanchable redness to bottom. Denies other needs at this time. Call light in reach.
[2021-01-30 07:46] VITALS: BP 173/63; PULSE 65; TEMP 98.1
[2021-01-30 11:55] VITALS: BP 159/67; PULSE 91; TEMP 98.4
--- NOTE | 2021-01-30 12:56 | NUR ---
Maura, at [facility], reports that they are able to accept the patient for services. The patient's son, Elieser, contacted OMAR and reports that he is down by admissions and has a copy of the patient's DPOA-HC. OMAR met with Elieser and obtained the DPOA-HC and updated him about [facility]. He had no other questions for concerns for at this time. OMAR placed the patient's DPOA-HC in the patient's chart. The patient's DPOA-HC is her son, Elieser.
--- NOTE | 2021-01-30 13:42 | NUR ---
First visit from the helicopter repairer. No needs right now.
--- NOTE | 2021-01-30 15:21 | NUR ---
Dr. Springer notified OMAR that the patient may need assistance with setting up a ride to dialysis tomorrow through [facility]. OMAR met with the patient. The patient reports that she was able to get in touch with [facility] and has secured herself a ride through them for tomorrow. She asked for some clothes and informed OMAR that she would need transport home. The patient is to discharge back home with her son today, 01/30, with home health services for intermediate/PT/OT from [facility]. OMAR notified and faxed d/c orders to Maura at [facility]. OMAR provided a taxi voucher to the patient's RN for the patient to get home. OMAR contacted and updated the patient's son, Elieser, on the above. Elieser is in agreement to the plan. No additional needs at this time.
--- NOTE | 2021-01-30 16:25 | NUR ---
Discharge instructions discussed w/pt and all questions answered. IV to left forearm removed w/tip intact. Pt escorted out via wheelchair w/all belongings and assisted into taxi.
== END 2021-01-30 16:28 | disposition home health service (06) | DRG 535 ==
LOC: COL.ER 16:57 → MEDICAL 01-28 08:00
PROVIDERS: Emergency Medicine Emergency Medical Services; ADMIT Internal Medicine Nephrology
PROC: 5A1D80Z Performance of Urinary Filtration, Prolonged Intermittent, 6-18 hours Per Day (ICD-10-PCS; principal; 2021-01-28)
DX: S32.591A Other specified fracture of right pubis, initial encounter for closed fracture (principal); N18.6 End stage renal disease; I13.2 Hypertensive heart and chronic kidney disease with heart failure and with stage 5 chronic kidney disease, or end stage renal disease; D63.1 Anemia in chronic kidney disease; F32.9 Major depressive disorder, single episode, unspecified; E78.5 Hyperlipidemia, unspecified; M79.7 Fibromyalgia; F41.9 Anxiety disorder, unspecified; E03.9 Hypothyroidism, unspecified; G40.909 Epilepsy, unspecified, not intractable, without status epilepticus; G47.33 Obstructive sleep apnea (adult) (pediatric); I50.9 Heart failure, unspecified; Z99.2 Dependence on renal dialysis; Z86.73 Personal history of transient ischemic attack (TIA), and cerebral infarction without residual deficits; Z90.49 Acquired absence of other specified parts of digestive tract; Z79.890 Hormone replacement therapy; Z88.1 Allergy status to other antibiotic agents; Z88.8 Allergy status to other drugs, medicaments and biological substances; Z88.2 Allergy status to sulfonamides; W19.XXXA Unspecified fall, initial encounter
CPT/HCPCS: J1644; J2270; J7030; Q5105

== ENCOUNTER → 2021-11-23 | Outpatient (CLI) | payer MEDICARE ==
[~2021-11-23] MED LIST changes: +ANTACID ULTRA1000 M1; +HAIRSKINNAILS PO; +ULTRAM ER100 MG PO
== END ==
LOC: COL.RAD 12:01
DX: M51.34 Other intervertebral disc degeneration, thoracic region (principal); S22.000A Wedge compression fracture of unspecified thoracic vertebra, initial encounter for closed fracture

== ENCOUNTER 2022-01-08 14:26 | Emergency (ER) | payer MEDICARE, MEDICAID ==
[~2022-01-08] VITALS: Ht 144.8 cm; Wt 62.7 kg
[2022-01-08 14:28] VITALS: TEMP 97.9
[2022-01-08 15:17] LABS: BASO # 0.1 K/mm3 (0.0-0.2); BASO % 1.3 % (0.0-2.0); EOS # 0.2 K/mm3 (0.0-0.7); EOS % 3.2 % (0.0-4.0); GRAN # 4.3 K/mm3 (1.4-6.5); GRAN % 62.8 % (42.2-75.2); HEMOGLOBIN 10.6 g/dl (12.5-16.0); LYMPH # 1.7 K/mm3 (1.2-3.4); LYMPH % 24.4 % (20.0-51.0); MEAN CELL VOLUME 101 fl (80.0-100.0); MEAN CORPUSCULAR HEMOGLOBIN 32 pg (27-31); MEAN CORPUSCULAR HGB CONC 32 g/dl (33.0-37.0); MEAN PLATELET VOLUME 10.1 fl (7.4-10.4); MONO # 0.5 K/mm3 (0.1-0.6); MONO % 7.7 % (1.7-9.3); PLATELET COUNT 220 K/mm3 (130-400); RED BLOOD COUNT 3.32 M/mm3 (4.10-5.30)
[2022-01-08 15:21] LABS: HEMATOCRIT 33.5 % (37.0-47.0)
[2022-01-08 15:22] LABS: BILIRUBIN,TOTAL 0.4 mg/dL (0.2-1.2); CALCIUM 9.9 mg/dL (8.4-10.2); CREATININE, serum 2.92 mg/dL (0.57-1.11); INR 0.8 (0.8-3.0); POTASSIUM 4.4 mmol/L (3.5-4.5); PROTHROMBIN TIME 9.7 SECONDS (9.7-12.8); TOTAL PROTEIN 6.6 gm/dL (6.2-8.1)
[2022-01-08 15:25] LABS: PARTIAL THROMBOPLASTIN TIME 31.2 SECONDS (26.0-37.0)
[2022-01-08 15:27] LABS: TROPONIN-I 0.024 ng/mL (0.00-0.033)
[2022-01-08 17:33] LABS: COLLECTION METHOD CLEAN CATCH
[2022-01-08 17:59] LABS: MUCOUS Present (NOT PRESENT); PH 5 (5-8); SQUAMOUS EPITHELIAL 0-2 /hpf (0-10); URINE APPEARANCE Cloudy (CLEAR/HAZY); URINE BACTERIA None Seen /hpf (NONE SEEN); URINE BILIRUBIN Negative (NEGATIVE); URINE BLOOD Negative (NEGATIVE); URINE COLOR Yellow (YELLOW); URINE GLUCOSE Negative (NEGATIVE); URINE KETONE Negative (NEGATIVE); URINE LEUKOCYTE ESTERASE 2+ (NEGATIVE); URINE NITRATE Negative (NEGATIVE); URINE PROTEIN(semi-quant) 2+ (NEGATIVE); URINE UROBILINOGEN Negative (NEGATIVE)
[2022-01-08] MEDS ORDERED: CEPHALEXIN500 M1 PO (19:34)
[2022-01-08 19:43] VITALS: BP 141/78; PULSE 75
== END 2022-01-08 19:44 | disposition home or self-care (01) ==
LOC: COL.ER 14:26
PROVIDERS: Emergency Medicine
DX: R07.89 Other chest pain (principal); N39.0 Urinary tract infection, site not specified; I12.0 Hypertensive chronic kidney disease with stage 5 chronic kidney disease or end stage renal disease; N18.6 End stage renal disease; G89.29 Other chronic pain; Z99.2 Dependence on renal dialysis; Z20.822 Contact with and (suspected) exposure to COVID-19; Z88.1 Allergy status to other antibiotic agents; Z79.891 Long term (current) use of opiate analgesic; Z28.310 Unvaccinated for COVID-19

== ENCOUNTER 2022-01-12 13:36 | Inpatient (IN) | payer MEDICARE, MEDICAID ==
[~2022-01-12] VITALS: Ht 144.8 cm; Wt 62.7 kg
[~2022-01-12 13:36] MED LIST changes: +CEPHALEXIN500 M1 PO
[2022-01-12 15:02] LABS: BASO # 0.1 K/mm3 (0.0-0.2); BASO % 0.5 % (0.0-2.0); EOS # 0.6 K/mm3 (0.0-0.7); EOS % 2.9 % (0.0-4.0); GRAN # 14.8 K/mm3 (1.4-6.5); GRAN % 76.5 % (42.2-75.2); HEMOGLOBIN 10.4 g/dl (12.5-16.0); LYMPH # 2.6 K/mm3 (1.2-3.4); LYMPH % 13.5 % (20.0-51.0); MEAN CELL VOLUME 104 fl (80.0-100.0); MEAN CORPUSCULAR HEMOGLOBIN 32 pg (27-31); MEAN CORPUSCULAR HGB CONC 31 g/dl (33.0-37.0); MONO # 1.1 K/mm3 (0.1-0.6); MONO % 5.9 % (1.7-9.3); PLATELET COUNT 199 K/mm3 (130-400); RED BLOOD COUNT 3.23 M/mm3 (4.10-5.30); REDCELL DISTRIBUTION WIDTH-CV 14.5 % (11.5-14.5)
[2022-01-12 15:11] LABS: HEMATOCRIT 33.7 % (37.0-47.0)
[2022-01-12 15:28] LABS: ALBUMIN 2.7 gm/dL (3.4-4.8); BILIRUBIN,TOTAL 0.5 mg/dL (0.2-1.2); CALCIUM 9.2 mg/dL (8.4-10.2); CREATININE, serum 5.45 mg/dL (0.57-1.11); POTASSIUM 5.5 mmol/L (3.5-4.5); TOTAL PROTEIN 6.2 gm/dL (6.2-8.1)
[2022-01-12 16:55] LABS: COLLECTION METHOD CLEAN CATCH
[2022-01-12 17:15] LABS: MUCOUS Present (NOT PRESENT); PH 5 (5-8); URINE APPEARANCE Cloudy (CLEAR/HAZY); URINE BACTERIA Rare /hpf (NONE SEEN); URINE BILIRUBIN Negative (NEGATIVE); URINE BLOOD Negative (NEGATIVE); URINE COLOR Yellow (YELLOW); URINE GLUCOSE Negative (NEGATIVE); URINE KETONE Negative (NEGATIVE); URINE LEUKOCYTE ESTERASE 2+ (NEGATIVE); URINE NITRATE Negative (NEGATIVE); URINE PROTEIN(semi-quant) 1+ (NEGATIVE); URINE UROBILINOGEN Negative (NEGATIVE); URINE WBC >50 /hpf (0-2)
[2022-01-12 20:03] VITALS: BP 122/51; PULSE 69; TEMP 98.2
[2022-01-12] MEDS ORDERED: MOBIC 7.5MG7.5 MG (22:40)
[2022-01-12] MEDS ORDERED: B-12 500 MCG PO (22:43)
[2022-01-12] MEDS ORDERED: VTAMINC250TA PO (22:44)
[2022-01-12] MEDS ORDERED: VITAMIN D31000 IU PO (22:45)
[2022-01-12] MEDS ORDERED: FLEXERIL5 MG PO (22:50)
[2022-01-12] MEDS ORDERED: NORCO 325 MG-51 TAB PO (22:51)
[2022-01-13 00:31] VITALS: BP 101/46; PULSE 70; TEMP 98.3
[2022-01-13 04:58] VITALS: BP 109/59; PULSE 72; TEMP 97.8
--- NOTE | 2022-01-13 06:07 | NUR ---
MS. MCRAE HAS HAD AN UNEVENTFUL EVENING. THERE WERE LIMITED ORDERS, HOWEVER THE PATIENT HAS NOT NEEDED ANYTHING THROUGH THE NIGHT. SHE DID REQUEST LOTS OF FOOD, AND WANTED PEPSI. AT THIS TIME THE PATIENT IS NOT ON ANY KIND OF DIET NOR IS SHE ON A FLUID RESTRICTION. THE PATIENT DID HAVE A MEAL BOX AND A PEPSI, AND HAS REQUESTED MORE THROUGH THE EARLY EVENING, BUT HAS SLEPT NICELY SINCE MIDNIGHT. NO OTHER CONCERNS. CONTINUED TO WATCH THE PATIENT'S RASH, IT IS NOT WORSENING. THE PATIENT STATE THAT THE RASH "ABERNATHY FROM THE INSIDE OUT." NO OTHER CONCERNS. PATIENT'S DAUGHTER CALLED AND ASSISTED WITH THE MED RECONCILLIATION. WILL REPORT TO DAY SHIFT RN.
[2022-01-13 07:05] VITALS: BP 112/47; PULSE 71; TEMP 98
--- NOTE | 2022-01-13 08:06 | NUR ---
Pt does not have diet order and is asking for something to eat. Will call YURIDIA Bueno. Pt also requesting pop to drink. States she only drinks pepsi, mt dew and gomez pepsi. Gave her ice water to take morning medications, she was not happy about this. Pt is not happy that she only got a sandwich last night to eat. Pt appears to be resting comfortably, but is rating her pain 8-9/10. Reports back and knees hurt and has all over burning from the rash. Rash appears to be mostly in places where warmth is. Her back, back side of arms, between legs, back of legs and folds in her stomach. Pt does have edema noted to her hands and feet. She does report feeling weak when she walks which she stated she has dealt with even at home
--- NOTE | 2022-01-13 09:35 | NUR ---
Pt did not have diet order this morning. Did get ahold of Michelle, new order entered. Pt also on fluid restriction, requesting only pepsi at this time. YURIDIA Bueno ok with this at this time
--- NOTE | 2022-01-13 09:39 | NUR ---
OMAR met with the patient to discuss discharge plan. The patient lives alone in a first floor apartment at [facility] in [place]. She reports independence with ADLs and has a walker and powerchair. She states that her powerchair needs new batteries and since it is an older chair, social security will not pay for the batteries. She states that she has been working with [employer] and her PCP to get a new powerchair through [employer]. She states that it is a long process and the last she knew, her PCP was trying to get her evaluated by PT/OT to help qualify her. She reports that she normally uses her powerchair to get her to dialysis and [employer], but since the batteries are , she has been utilizing the [employer] bus. The patient's PCP is Dr. Miko Mcallister and [facility]. The patient's DPOA-HC is in EMR and it designates her son, Elieser Vuong (ph#[phone]). She states that she does not want her son called or bothered while she is here, but she is still okay with him being her DPOA-HC. The patient plans to return home upon discharge. OMAR discussed home health services. The patient is interested in home health and would like to get services started back up from [facility]. OMAR contacted and faxed a referral to Thai at [facility]. Thai reports that they are able to accept the patient for services. OMAR contacted [employer] to follow up on the patient's powerchair order. The nurse receptionist reports that she will check with her team and get back to this SW about where they are at with the order. *Discharge plan: home with home health*
--- NOTE | 2022-01-13 10:18 | NUR ---
Nidia, at [facility], contacted this SW back with an update. Nidia reports that they received a [id number] back in July for a standard power wheelchair. She states that the patient was approved for the power wheelchair and they delivered it to the patient's home. The patient had the wheelchair for a couple days, but then called them back and stated that the wheelchair would not work for her. The patient wanted to pursue with getting a Complex Powerchair. [facility] provided the patient with the steps and requirements needed for the complex powerchair. Nidia reports that the patient would need a new [id number] from her PCP for the complex powerchair.
--- NOTE | 2022-01-13 10:26 | NUR ---
Pt in dialysis at this time
[2022-01-13] MEDS ORDERED: AURYXIA1 GM PO (12:38)
--- NOTE | 2022-01-13 14:07 | NUR ---
Pt back from dialysis. ANGELINE Chacko discussed with pt about limiting soda intake. Pt also stated that if she gets put on dialysis diet, that she will not eat. Pt will be on dialysis diet at dinner. Pt continues to report overall pain and some burning with the rash.
--- NOTE | 2022-01-13 15:00 | NUR ---
Pt not happy about diet change. Stated that she wanted to speak to someone about it. Notified ANGELINE Chacko
[2022-01-13 16:45] VITALS: BP 124/81; PULSE 81; TEMP 98.3
--- NOTE | 2022-01-13 18:24 | NUR ---
Edema appears to have improved. Pt is in a pleasent mood. She has made the one pepsi I gave her for lunch last all day. No needs or complaints. Rash has continued to improve throughout the day. She has less complaints regarding it. States only her bottom still has a burning feeling
[2022-01-13 20:35] VITALS: BP 139/52; PULSE 91; TEMP 99.2
[2022-01-14 00:13] VITALS: BP 137/61; PULSE 73; TEMP 98.6
[2022-01-14 04:25] VITALS: BP 144/60; PULSE 69; TEMP 98.1
[2022-01-14 06:44] LABS: BASO # 0.1 K/mm3 (0.0-0.2); BASO % 0.3 % (0.0-2.0); EOS # 0.2 K/mm3 (0.0-0.7); EOS % 1.3 % (0.0-4.0); GRAN # 12.1 K/mm3 (1.4-6.5); GRAN % 75.8 % (42.2-75.2); HEMOGLOBIN 10.2 g/dl (12.5-16.0); LYMPH # 2.6 K/mm3 (1.2-3.4); LYMPH % 16.1 % (20.0-51.0); MEAN CELL VOLUME 101 fl (80.0-100.0); MEAN CORPUSCULAR HEMOGLOBIN 32 pg (27-31); MEAN CORPUSCULAR HGB CONC 32 g/dl (33.0-37.0); MEAN PLATELET VOLUME 10.8 fl (7.4-10.4); MONO # 0.9 K/mm3 (0.1-0.6); MONO % 5.6 % (1.7-9.3); PLATELET COUNT 235 K/mm3 (130-400); RED BLOOD COUNT 3.19 M/mm3 (4.10-5.30); REDCELL DISTRIBUTION WIDTH-CV 14.2 % (11.5-14.5)
[2022-01-14 06:55] LABS: HEMATOCRIT 32.2 % (37.0-47.0)
[2022-01-14 07:13] LABS: ALBUMIN 2.7 gm/dL (3.4-4.8); CALCIUM 9.2 mg/dL (8.4-10.2); CREATININE, serum 4.54 mg/dL (0.57-1.11); PHOSPHOROUS 4.2 mg/dL (2.3-4.7); POTASSIUM 3.9 mmol/L (3.5-4.5)
[2022-01-14 08:07] VITALS: BP 127/57; PULSE 78; TEMP 98.5
[2022-01-14] MEDS ORDERED: PREDNISONE20 MG PO (11:32)
--- NOTE | 2022-01-14 11:41 | NUR ---
PATIENT RESTING IN BED. C/O ITCHING. SKIN COVERED IN RED RASH. RASH IS WARM TO TOUCH, MORE PROMINENT IN AREAS THAT ARE PRONE TO MOISTURE AND LAYING ON. NO OTHER COMPLAINTS OF PAIN. LUNGS CLEAR, SKIN PEELING AROUND RECTUM, SKIN OTHER BROWN INTACT. PLAN TO DISCHARGE PATIENT TODAY WITH HOME HEALTH.
[2022-01-14 12:15] VITALS: BP 134/62; PULSE 88; TEMP 98.9
--- NOTE | 2022-01-14 12:18 | NUR ---
Temi: No hinduism preference Situation: Textile Stylist stopped by room on rounds Background: PT was eating lunch and seemed content Assessment: PT said she was getting out later today Recommendation: Textile Stylist will follow up as needed
--- NOTE | 2022-01-14 12:51 | NUR ---
The patient is to discharge back home today, 01/14, with home health services for long-term/PT/OT from [facility]. OMAR notified and faxed orders to Thai at [facility]. No additional needs at this time.
== END 2022-01-14 13:45 | disposition home health service (06) | DRG 606 ==
LOC: COL.ER 13:36 → MEDICAL 17:53
PROVIDERS: Emergency Medicine; Registered Nurse; ADMIT Internal Medicine Nephrology
PROC: 5A1D70Z Performance of Urinary Filtration, Intermittent, Less than 6 Hours Per Day (ICD-10-PCS; principal; 2022-01-13)
DX: L27.0 Generalized skin eruption due to drugs and medicaments taken internally (principal); N18.6 End stage renal disease; I12.0 Hypertensive chronic kidney disease with stage 5 chronic kidney disease or end stage renal disease; N39.0 Urinary tract infection, site not specified; Z20.822 Contact with and (suspected) exposure to COVID-19; L53.9 Erythematous condition, unspecified; D72.829 Elevated white blood cell count, unspecified; F41.9 Anxiety disorder, unspecified; G89.29 Other chronic pain; G40.909 Epilepsy, unspecified, not intractable, without status epilepticus; E03.9 Hypothyroidism, unspecified; M79.7 Fibromyalgia; E78.5 Hyperlipidemia, unspecified; G47.33 Obstructive sleep apnea (adult) (pediatric); M81.0 Age-related osteoporosis without current pathological fracture; D63.1 Anemia in chronic kidney disease; T36.1X5A Adverse effect of cephalosporins and other beta-lactam antibiotics, initial encounter; I95.9 Hypotension, unspecified; Z98.51 Tubal ligation status; Z90.49 Acquired absence of other specified parts of digestive tract; Z79.890 Hormone replacement therapy; Y92.89 Other specified places as the place of occurrence of the external cause; Z88.1 Allergy status to other antibiotic agents; Z99.2 Dependence on renal dialysis; Z86.73 Personal history of transient ischemic attack (TIA), and cerebral infarction without residual deficits; Z88.2 Allergy status to sulfonamides; Z88.8 Allergy status to other drugs, medicaments and biological substances; Z23 Encounter for immunization
CPT/HCPCS: J7512

== ENCOUNTER 2022-03-02 18:44 | Emergency (ER) | payer MEDICARE, MEDICAID ==
[~2022-03-02] VITALS: Ht 142.2 cm; Wt 65.5 kg
[~2022-03-02 18:44] MED LIST changes: +AURYXIA1 GM PO; +B-12 500 MCG PO; +FLEXERIL5 MG PO; +MOBIC 7.5MG7.5 MG; +VITAMIN D31000 IU PO; +VTAMINC250TA PO
[2022-03-02 21:01] VITALS: BP 183/88; PULSE 86; TEMP 98.4
== END 2022-03-02 21:01 | disposition home or self-care (01) ==
LOC: COL.ER 18:44
DX: S46.912A Strain of unspecified muscle, fascia and tendon at shoulder and upper arm level, left arm, initial encounter (principal); S70.02XA Contusion of left hip, initial encounter; Z96.642 Presence of left artificial hip joint; Z28.310 Unvaccinated for COVID-19; W18.39XA Other fall on same level, initial encounter

== ENCOUNTER 2022-03-05 17:21 | Emergency (ER) | payer MEDICARE, MEDICAID ==
[~2022-03-05] VITALS: Ht 142.2 cm; Wt 65.5 kg
[2022-03-05 17:23] VITALS: TEMP 98.7
[2022-03-05 18:06] LABS: BASO # 0.1 K/mm3 (0.0-0.2); BASO % 1.1 % (0.0-2.0); EOS # 0.4 K/mm3 (0.0-0.7); EOS % 5.2 % (0.0-4.0); GRAN # 5.5 K/mm3 (1.4-6.5); GRAN % 63.9 % (42.2-75.2); HEMOGLOBIN 10.9 g/dl (12.5-16.0); LYMPH # 1.7 K/mm3 (1.2-3.4); LYMPH % 19.8 % (20.0-51.0); MEAN CELL VOLUME 103 fl (80.0-100.0); MEAN CORPUSCULAR HEMOGLOBIN 33 pg (27-31); MEAN CORPUSCULAR HGB CONC 32 g/dl (33.0-37.0); MONO # 0.8 K/mm3 (0.1-0.6); MONO % 9.5 % (1.7-9.3); PLATELET COUNT 219 K/mm3 (130-400); RED BLOOD COUNT 3.33 M/mm3 (4.10-5.30); REDCELL DISTRIBUTION WIDTH-CV 13.5 % (11.5-14.5)
[2022-03-05 18:11] LABS: HEMATOCRIT 34.3 % (37.0-47.0)
[2022-03-05 18:24] LABS: ALBUMIN 3.2 gm/dL (3.4-4.8); BILIRUBIN,TOTAL 0.6 mg/dL (0.2-1.2); CALCIUM 9.7 mg/dL (8.4-10.2); CREATININE, serum 5.27 mg/dL (0.57-1.11); POTASSIUM 4.9 mmol/L (3.5-4.5); TOTAL PROTEIN 6.9 gm/dL (6.2-8.1)
[2022-03-05 20:24] VITALS: BP 165/78; PULSE 87
== END 2022-03-05 20:24 | disposition home or self-care (01) ==
LOC: COL.ER 17:21
PROVIDERS: Physician Assistant
DX: M25.512 Pain in left shoulder (principal); M54.50 Low back pain, unspecified; I12.0 Hypertensive chronic kidney disease with stage 5 chronic kidney disease or end stage renal disease; N18.6 End stage renal disease; R06.02 Shortness of breath; G89.29 Other chronic pain; Z79.891 Long term (current) use of opiate analgesic; Z99.2 Dependence on renal dialysis; W18.39XA Other fall on same level, initial encounter

== ENCOUNTER 2022-03-15 10:04 | Emergency (ER) | payer MEDICARE, MEDICAID ==
[~2022-03-15] VITALS: Ht 142.2 cm; Wt 66.4 kg
[2022-03-15 10:07] VITALS: TEMP 97.7
[2022-03-15 11:41] LABS: ALBUMIN 3.4 gm/dL (3.4-4.8); BILIRUBIN,TOTAL 0.6 mg/dL (0.2-1.2); CALCIUM 10.3 mg/dL (8.4-10.2); CREATININE, serum 10.03 mg/dL (0.57-1.11); TOTAL PROTEIN 7.2 gm/dL (6.2-8.1)
[2022-03-15 11:46] LABS: POTASSIUM 6.1 mmol/L (3.5-4.5)
[2022-03-15 12:10] LABS: BASO # 0.1 K/mm3 (0.0-0.2); EOS # 0.4 K/mm3 (0.0-0.7); EOS % 3.8 % (0.0-4.0); GRAN # 6.7 K/mm3 (1.4-6.5); GRAN % 69.5 % (42.2-75.2); HEMOGLOBIN 10.5 g/dl (12.5-16.0); LYMPH # 1.7 K/mm3 (1.2-3.4); LYMPH % 17.7 % (20.0-51.0); MEAN CELL VOLUME 102 fl (80.0-100.0); MEAN CORPUSCULAR HEMOGLOBIN 33 pg (27-31); MEAN CORPUSCULAR HGB CONC 32 g/dl (33.0-37.0); MEAN PLATELET VOLUME 9.6 fl (7.4-10.4); MONO # 0.7 K/mm3 (0.1-0.6); MONO % 7.5 % (1.7-9.3); PLATELET COUNT 287 K/mm3 (130-400)
[2022-03-15 12:11] LABS: HEMATOCRIT 32.7 % (37.0-47.0)
[2022-03-15 12:53] LABS: COLLECTION METHOD CLEAN CATCH
[2022-03-15 13:09] LABS: SQUAMOUS EPITHELIAL 0-2 /hpf (0-10); URINE BACTERIA None Seen /hpf (NONE SEEN); URINE RBC 0-2 /hpf (0-2)
[2022-03-15 13:15] LABS: URINE APPEARANCE Clear (CLEAR/HAZY); URINE COLOR Yellow (YELLOW); URINE GLUCOSE Negative (NEGATIVE); URINE KETONE Negative (NEGATIVE); URINE PROTEIN(semi-quant) 2+ (NEGATIVE)
[2022-03-15 13:16] LABS: URINE BLOOD TRACE-INTACT (NEGATIVE); URINE NITRATE Negative (NEGATIVE); URINE UROBILINOGEN 0.2 E.U/dL (0.2-1.0)
[2022-03-15 14:55] VITALS: BP 195/100; PULSE 98
== END 2022-03-15 15:00 | disposition home or self-care (01) ==
LOC: COL.ER 10:04
PROVIDERS: Emergency Medicine; Physician Assistant
DX: I12.0 Hypertensive chronic kidney disease with stage 5 chronic kidney disease or end stage renal disease (principal); N18.6 End stage renal disease; G89.29 Other chronic pain; E87.5 Hyperkalemia; Z99.2 Dependence on renal dialysis; Z28.310 Unvaccinated for COVID-19; Z79.891 Long term (current) use of opiate analgesic
CPT/HCPCS: J0360; J2270

== ENCOUNTER 2022-03-15 19:22 | Emergency (ER) | payer MEDICARE, MEDICAID ==
[~2022-03-15] VITALS: Ht 142.2 cm; Wt 68.2 kg
[2022-03-15 19:23] VITALS: TEMP 98.6
[2022-03-15 20:17] LABS: BASO # 0.1 K/mm3 (0.0-0.2); BASO % 0.8 % (0.0-2.0); EOS # 0.2 K/mm3 (0.0-0.7); EOS % 3.2 % (0.0-4.0); GRAN # 5.4 K/mm3 (1.4-6.5); GRAN % 72.2 % (42.2-75.2); HEMOGLOBIN 10.8 g/dl (12.5-16.0); LYMPH # 1.1 K/mm3 (1.2-3.4); LYMPH % 15.2 % (20.0-51.0); MEAN CELL VOLUME 99 fl (80.0-100.0); MEAN CORPUSCULAR HEMOGLOBIN 32 pg (27-31); MEAN CORPUSCULAR HGB CONC 32 g/dl (33.0-37.0); MEAN PLATELET VOLUME 9.3 fl (7.4-10.4); MONO # 0.6 K/mm3 (0.1-0.6); MONO % 8.3 % (1.7-9.3); PLATELET COUNT 278 K/mm3 (130-400); REDCELL DISTRIBUTION WIDTH-CV 14.1 % (11.5-14.5)
[2022-03-15 20:18] LABS: HEMATOCRIT 33.7 % (37.0-47.0)
[2022-03-15 20:38] LABS: ALBUMIN 3.4 gm/dL (3.4-4.8); BILIRUBIN,TOTAL 0.5 mg/dL (0.2-1.2); CALCIUM 10.2 mg/dL (8.4-10.2); CREATININE, serum 4.35 mg/dL (0.57-1.11); POTASSIUM 4.3 mmol/L (3.5-4.5); TOTAL PROTEIN 7.4 gm/dL (6.2-8.1)
[2022-03-15 21:44] VITALS: BP 140/84; PULSE 97
--- NOTE | 2022-03-16 15:26 | NUR ---
muffle worker left message for patient and son, Elieser (durable power of commercial real estate attorney) to call regarding increased help at home.
== END 2022-03-15 21:44 | disposition home or self-care (01) ==
LOC: COL.ER 19:22
PROVIDERS: Personal Emergency Response Attendant
DX: R42 Dizziness and giddiness (principal); I12.0 Hypertensive chronic kidney disease with stage 5 chronic kidney disease or end stage renal disease; N18.6 End stage renal disease; Z99.2 Dependence on renal dialysis; Z28.310 Unvaccinated for COVID-19
CPT/HCPCS: J7050

== ENCOUNTER 2022-05-11 11:01 | Outpatient (CLI) | payer MEDICARE, MEDICAID ==
[2022-05-11] VITALS (9 sets, daily range): BP systolic 158–214; BP diastolic 84–113; PULSE 75–91; TEMP 98.6
[~2022-05-11] VITALS: Ht 152.4 cm; Wt 61.2 kg
[~2022-05-11 11:01] MED LIST changes: +ALIVE ONCE DAI1 EACH PO; +ASPIRIN 81M81 MG/TA2 PO; +COZAAR100 MG PO; +MOBIC 7.5MG7.5 MG PO; +PHOSLO667 MG PO; +VITAMINC1000TA PO
[2022-05-11] MEDS ORDERED: ANTI-DIARRHEAL2 MG PO (12:36)
[2022-05-11] MEDS ORDERED: PEPCID 20MG TAB20 MG PO (12:38)
[2022-05-11] MEDS ORDERED: RENVELA800 MG PO (12:39)
[2022-05-11] MEDS ORDERED: MULTI VITAMINS1 TAB PO (12:40)
[2022-05-11] MEDS ORDERED: SONATA5 MG PO (12:41)
[2022-05-11] MEDS ORDERED: TYLENOL 500MG500 MG PO (12:41)
--- NOTE | 2022-05-11 13:36 | NUR ---
SEE MERGE FOR VITAL SIGNS, ASSESSMENTS, INTERVENTIONS AND MEDICATIONS GIVEN.
--- NOTE | 2022-05-11 16:58 | NUR ---
Bandaids remain clean, dry and intact. Strong thrill to RUE fistula. IV DC'd. Pt assisted out to friend's car with belongings.
== END 2022-05-11 16:59 | disposition home or self-care (01) ==
LOC: COL.CAR 11:01
DX: T82.838A Hemorrhage due to vascular prosthetic devices, implants and grafts, initial encounter (principal); L76.32 Postprocedural hematoma of skin and subcutaneous tissue following other procedure; I12.9 Hypertensive chronic kidney disease with stage 1 through stage 4 chronic kidney disease, or unspecified chronic kidney disease; N18.9 Chronic kidney disease, unspecified; Z99.2 Dependence on renal dialysis; Z79.899 Other long term (current) drug therapy; Z79.82 Long term (current) use of aspirin
CPT/HCPCS: C1769; J2250; J3010; Q9967

== ENCOUNTER 2022-10-14 16:50 | Inpatient (IN) | payer MEDICARE, MEDICAID ==
[~2022-10-14] VITALS: Ht 149.9 cm; Wt 63.4 kg
[~2022-10-14 16:50] MED LIST changes: +DESYREL 100MG100 MG PO; +IMODIUM 2MG CAPS2 MG PO; +LASIX 80MG TABL80 MG PO; +LIPITOR 80MG80 MG PO; +MULTI VITAMINS1 TAB PO; +PEPCID AC 10MG10 MG PO; +RENVELA800 MG PO; +SENEXON-S 50-81 EACH PO; +SONATA 10MG10 MG PO; +SONATA5 MG PO
[2022-10-14 17:18] LABS: BASO # 0.1 K/mm3 (0.0-0.2); EOS # 0.4 K/mm3 (0.0-0.7); EOS % 4.1 % (0.0-4.0); GRAN # 6.2 K/mm3 (1.4-6.5); GRAN % 66.5 % (42.2-75.2); LYMPH % 21.2 % (20.0-51.0); MEAN CELL VOLUME 94 fl (80.0-100.0); MEAN CORPUSCULAR HEMOGLOBIN 29 pg (27-31); MEAN CORPUSCULAR HGB CONC 31 g/dl (33.0-37.0); MEAN PLATELET VOLUME 10.1 fl (7.4-10.4); MONO # 0.7 K/mm3 (0.1-0.6); PLATELET COUNT 241 K/mm3 (130-400); RED BLOOD COUNT 3.42 M/mm3 (4.10-5.30); REDCELL DISTRIBUTION WIDTH-CV 16.4 % (11.5-14.5)
[2022-10-14 17:20] LABS: HEMATOCRIT 32.3 % (37.0-47.0)
[2022-10-14 17:37] LABS: ALBUMIN 2.6 gm/dL (3.4-4.8); CALCIUM 8.6 mg/dL (8.4-10.2); CREATININE, serum 7.94 mg/dL (0.57-1.11); TOTAL PROTEIN 6.2 gm/dL (6.2-8.1)
[2022-10-14 17:40] LABS: POTASSIUM 6.1 mmol/L (3.5-4.5)
[2022-10-14 17:49] LABS: BILIRUBIN,TOTAL 0.6 mg/dL (0.2-1.2)
--- NOTE | 2022-10-14 19:51 | NUR ---
RECEIVED REPORT FROM Melony CHRISTOPHER, TACOS. PATIENT ARRIVAL PENDING TO BE ADMITTED TO ROOM 357.
--- NOTE | 2022-10-14 20:30 | NUR ---
PATIENT TO ROOM VIA E.D. CART, OBSERVED PATIENT VERY LETHARGIC AND DIAPHORETIC. FSBS CHECKED AT 52, ENCOURAGED PATIENT TO DRINK REGULAR SODA, GIVEN REGULAR JELLO AND GRAPE JUICE WITH 2 PACKETS OF SUGAR. CALLED UBALDO RN FOR DR LESLIE, INFORMED OF FSBS, PROVIDER TO PUT IN ORDERS FOR HYPOGLYCEMIC PROTOCOL.
[2022-10-14] MEDS ORDERED: INDERAL40 MG PO (21:24)
[2022-10-14] MEDS ORDERED: PRIL40 PO (21:25)
[2022-10-14] MEDS ORDERED: EUTHYROX112 MCG PO (21:30)
[2022-10-14] MEDS ORDERED: CARAFATE 1GM1 G PO (21:53)
[2022-10-14] MEDS ORDERED: ANTI-DIARRHEAL2 MG PO ×2 (21:55→21:56)
[2022-10-14] MEDS ORDERED: ULTRAM 50MG TAB50 MG PO (22:00)
[2022-10-14] MEDS ORDERED: COLESTID 1GM1 G PO (22:04)
[2022-10-14] MEDS ORDERED: SODIUM BICARBO650 MG PO (22:06)
--- NOTE | 2022-10-14 23:21 | NUR ---
PATIENT WANTING HER DIARRHEA MED TONIGHT, CALLED DR LESLIE FOR PATIENT REQUEST, PROVIDER GAVE ORDER THAT PATIENT MAY HAVE HER NIGHT TIME DOSE TONIGHT AND WILL HAVE REST OF HOME MEDS EVALUATED IN AM. INFORMED PATIENT OF DOCTOR'S ORDER WITH NO FURTHER QUESTIONS OR CONCERNS.
[2022-10-15] VITALS (10 sets, daily range): BP systolic 138–187; BP diastolic 61–80; PULSE 62–92; TEMP 97.8–99.5
[2022-10-15 06:44] LABS: BASO # 0.1 K/mm3 (0.0-0.2); BASO % 0.8 % (0.0-2.0); EOS # 0.3 K/mm3 (0.0-0.7); EOS % 2.9 % (0.0-4.0); GRAN # 6.4 K/mm3 (1.4-6.5); GRAN % 67.5 % (42.2-75.2); MEAN CELL VOLUME 94 fl (80.0-100.0); MEAN CORPUSCULAR HGB CONC 31 g/dl (33.0-37.0); MEAN PLATELET VOLUME 10.8 fl (7.4-10.4); MONO # 0.7 K/mm3 (0.1-0.6); MONO % 7.5 % (1.7-9.3); PLATELET COUNT 230 K/mm3 (130-400); RED BLOOD COUNT 3.22 M/mm3 (4.10-5.30); REDCELL DISTRIBUTION WIDTH-CV 16.2 % (11.5-14.5)
[2022-10-15 06:46] LABS: HEMATOCRIT 30.2 % (37.0-47.0); HEMOGLOBIN 9.2 g/dl (12.5-16.0); MEAN CORPUSCULAR HEMOGLOBIN 29 pg (27-31)
[2022-10-15 06:58] LABS: ALBUMIN 2.3 gm/dL (3.4-4.8); CALCIUM 8.7 mg/dL (8.4-10.2); CREATININE, serum 8.28 mg/dL (0.57-1.11)
--- NOTE | 2022-10-15 07:09 | NUR ---
CHANGE OF SHIFT REPORT GIVEN TO DAY SHIFT RNIAIN.
[2022-10-15 07:13] LABS: POTASSIUM 6.5 mmol/L (3.5-4.5)
--- NOTE | 2022-10-15 08:03 | NUR ---
Pt awake and laying in bed. Pts K+ 6.5 this morning, called to [facility]. Morning medications adminsitered per eMAR, to include Lokelma. Shift assessment completed. Bruit/thrill noted in RUE, remains restricted. INT in L wrist remains in place. SCDs refused. Call light within reach. Fall precautions in place. Pt waiting for dialysis today.
--- NOTE | 2022-10-15 09:00 | NUR ---
IV site in L wrist discontinued by CANDI Saravia as IV site would not flush.
--- NOTE | 2022-10-15 09:15 | NUR ---
Pt to dialysis.
[2022-10-15] MEDS ORDERED: NORVASC 10MG10 MG PO (09:25)
[2022-10-15] MEDS ORDERED: ASPIRIN 81M81 MG/TA2 PO (09:26)
[2022-10-15] MEDS ORDERED: DULCOLAX STOOL100 MG PO (09:32)
[2022-10-15] MEDS ORDERED: MOBIC 7.5MG7.5 MG PO (09:35)
[2022-10-15] MEDS ORDERED: VTAMINC250TA PO (09:37)
[2022-10-15] MEDS ORDERED: NATURAL E400 IU PO (09:38)
--- NOTE | 2022-10-15 12:16 | NUR ---
Pt returned from dialysis.
--- NOTE | 2022-10-15 13:15 | NUR ---
CANDI Batres placed 24G to L hand.
--- NOTE | 2022-10-15 15:27 | NUR ---
District Plant Supervisor met with Patient at bedside to conduct Care Managment Assessment. PAtient lives alone in [place], [place] and is established with PCP Byron and covered by [facility]. Patient denies the use of O2 and home health services prior to admission. PAtient endorses the use of a 4WW and Wheelchair for ambulation due to a previous fracture. Patient's son, Elieser is her point of contact for family. PAtient intends to discharge home when medically stable.
--- NOTE | 2022-10-15 17:05 | NUR ---
Pts BP remains elevated despite administration of antihypertensives. Called to GINO Martinez - no answer, left voicemail and call back number.
[2022-10-16 02:59] VITALS: BP 145/68; PULSE 80; TEMP 97.4
[2022-10-16 07:27] VITALS: BP 163/58; PULSE 65; TEMP 97.6
--- NOTE | 2022-10-16 10:07 | NUR ---
SHIFT ASSESSMENT COMPLETED AND MORNING MEDICATIONS ADMINISTERED PER ORDER. PATIENT IS ALERT AND ORIENTED X4. DENIES PAIN. LUNGS CTA. SCHEDULED FOR DIALYSIS TODAY. FISTULA TO RIGHT UPPER ARM POSITIVE FOR THRILL AND BRUIT. REQUESTED TRAMADOL BE RESTARTED, DR. LESLIE UPDATED. PATIENT DENIES FURTHER NEEDS AT THIS TIME. CALL LIGHT WITHIN REACH.
[2022-10-16 10:40] LABS: ALBUMIN 2.3 gm/dL (3.4-4.8); CALCIUM 8.7 mg/dL (8.4-10.2); CREATININE, serum 6.77 mg/dL (0.57-1.11); PHOSPHOROUS 4.2 mg/dL (2.3-4.7); POTASSIUM 4.7 mmol/L (3.5-4.5)
[2022-10-16 10:52] LABS: BASO # 0.1 K/mm3 (0.0-0.2); BASO % 1.2 % (0.0-2.0); EOS # 0.4 K/mm3 (0.0-0.7); GRAN # 4.7 K/mm3 (1.4-6.5); GRAN % 61.9 % (42.2-75.2); HEMOGLOBIN 10.8 g/dl (12.5-16.0); LYMPH # 1.7 K/mm3 (1.2-3.4); LYMPH % 22.7 % (20.0-51.0); MEAN CELL VOLUME 92 fl (80.0-100.0); MEAN CORPUSCULAR HEMOGLOBIN 29 pg (27-31); MEAN CORPUSCULAR HGB CONC 31 g/dl (33.0-37.0); MEAN PLATELET VOLUME 10.4 fl (7.4-10.4); MONO # 0.7 K/mm3 (0.1-0.6); MONO % 9.1 % (1.7-9.3); PLATELET COUNT 271 K/mm3 (130-400); RED BLOOD COUNT 3.77 M/mm3 (4.10-5.30); REDCELL DISTRIBUTION WIDTH-CV 16.4 % (11.5-14.5)
[2022-10-16 10:57] LABS: HEMATOCRIT 34.5 % (37.0-47.0)
[2022-10-16] MEDS ORDERED: NEURONTIN300 MG/CAP PO (11:02)
[2022-10-16 11:28] VITALS: BP 150/81; PULSE 83; TEMP 98.2
--- NOTE | 2022-10-16 11:32 | NUR ---
SW informed that patient would be discharging home on this day after dialysis. SW met with patient to access needs up on DC and provide that PT recommended therapy services with home health as needed. Patient stated that she did not desire to have HH at this time due to a surgey she has to have on her leg. Patient stated that she previously has had services through [facility] and would contact them when she was ready to obtain their services. Patient also stated that she will be calling a friend to transport her back to her home. Nothing further.
--- NOTE | 2022-10-16 14:18 | NUR ---
DISCHARGE TEACHING COMPLETED, PATIENT DENIES FURTHER QUESTIONS. IV TO LEFT ARM REMOVED WITH CATHETER INTACT, NO BLEEDING NOTED. PATIENT AWAITING RIDE.
--- NOTE | 2022-10-16 15:26 | NUR ---
PATIENT DISCHARGED PER ORDER. ESCORTED OUT BY STAFF. HOME MEDICATIONS SENT WITH PATIENT.
== END 2022-10-16 15:00 | disposition home or self-care (01) | DRG 640 ==
LOC: COL.ER 16:50 → MEDICAL 18:08 → EDBEDREQ 18:25 → MEDICAL 21:00
PROVIDERS: Family Medicine; Registered Nurse; ADMIT Internal Medicine Nephrology
PROC: 5A1D70Z Performance of Urinary Filtration, Intermittent, Less than 6 Hours Per Day (ICD-10-PCS; principal; 2022-10-15)
DX: E87.5 Hyperkalemia (principal); N18.6 End stage renal disease; J90 Pleural effusion, not elsewhere classified; I12.0 Hypertensive chronic kidney disease with stage 5 chronic kidney disease or end stage renal disease; J81.1 Chronic pulmonary edema; E87.70 Fluid overload, unspecified; Z20.822 Contact with and (suspected) exposure to COVID-19; D63.1 Anemia in chronic kidney disease; E83.39 Other disorders of phosphorus metabolism; G89.29 Other chronic pain; F32.A Depression, unspecified; G40.909 Epilepsy, unspecified, not intractable, without status epilepticus; E78.5 Hyperlipidemia, unspecified; E03.9 Hypothyroidism, unspecified; E16.2 Hypoglycemia, unspecified; M79.7 Fibromyalgia; M81.0 Age-related osteoporosis without current pathological fracture; G47.33 Obstructive sleep apnea (adult) (pediatric); Z99.2 Dependence on renal dialysis; I25.2 Old myocardial infarction; Z98.84 Bariatric surgery status; Z86.73 Personal history of transient ischemic attack (TIA), and cerebral infarction without residual deficits; Z79.82 Long term (current) use of aspirin; Z79.890 Hormone replacement therapy; Z79.899 Other long term (current) drug therapy; Z88.8 Allergy status to other drugs, medicaments and biological substances; Z88.1 Allergy status to other antibiotic agents; Z91.15 Patient's noncompliance with renal dialysis
CPT/HCPCS: A9270; J1815; J1940

== ENCOUNTER 2023-04-18 15:24 | Emergency (ER) | payer MEDICARE, MEDICAID ==
[~2023-04-18] VITALS: Ht 121.9 cm; Wt 60.0 kg
[~2023-04-18 15:24] MED LIST changes: +CARAFATE 1GM1 G PO; +COLESTID 1GM1 G PO; +DULCOLAX STOOL100 MG PO; +EUTHYROX112 MCG PO; +INDERAL40 MG PO; +NATURAL E400 IU PO
[2023-04-18 17:13] LABS: BASO % 0.1 % (0.0-2.0); EOS # 0.3 K/mm3 (0.0-0.7); EOS % 4.1 % (0.0-4.0); GRAN # 4.7 K/mm3 (1.4-6.5); GRAN % 67.5 % (42.2-75.2); HEMOGLOBIN 11.5 g/dl (12.5-16.0); LYMPH # 1.4 K/mm3 (1.2-3.4); MEAN CELL VOLUME 98 fl (80.0-100.0); MEAN CORPUSCULAR HEMOGLOBIN 31 pg (27-31); MEAN CORPUSCULAR HGB CONC 31 g/dl (33.0-37.0); MEAN PLATELET VOLUME 10.2 fl (7.4-10.4); MONO # 0.5 K/mm3 (0.1-0.6); MONO % 7.6 % (1.7-9.3); PLATELET COUNT 228 K/mm3 (130-400); RED BLOOD COUNT 3.74 M/mm3 (4.10-5.30); REDCELL DISTRIBUTION WIDTH-CV 16.8 % (11.5-14.5)
[2023-04-18 17:17] LABS: HEMATOCRIT 36.6 % (37.0-47.0)
[2023-04-18 17:28] LABS: ALBUMIN 2.8 gm/dL (3.4-4.8); BILIRUBIN,TOTAL 0.5 mg/dL (0.2-1.2); C-REACTIVE PROTEIN 0.06 mg/dL (0.00-0.50); CALCIUM 8.7 mg/dL (8.4-10.2); CREATININE, serum 6.41 mg/dL (0.57-1.11); POTASSIUM 4.9 mmol/L (3.5-4.5); TOTAL PROTEIN 5.9 gm/dL (6.2-8.1)
[2023-04-18 17:34] LABS: TROPONIN-I 0.018 ng/mL (0.00-0.033)
[2023-04-18 18:07] LABS: COLLECTION METHOD CLEAN CATCH
[2023-04-18 18:15] VITALS: TEMP 96.3
[2023-04-18 18:17] VITALS: BP 126/77; PULSE 62
[2023-04-18 18:39] LABS: URINE APPEARANCE Hazy (CLEAR/HAZY); URINE COLOR Yellow (YELLOW)
[2023-04-18 18:40] LABS: URINE BLOOD Negative (NEGATIVE); URINE GLUCOSE Negative (NEGATIVE); URINE KETONE Negative (NEGATIVE); URINE NITRATE Negative (NEGATIVE); URINE PROTEIN(semi-quant) 2+ (NEGATIVE); URINE RBC None Seen /hpf (0-2); URINE UROBILINOGEN 0.2 E.U/dL (0.2-1.0)
[2023-04-18 18:41] LABS: URINE BACTERIA Moderate /hpf (NONE SEEN)
[2023-04-18] MEDS ORDERED: ZITHROMAX 250M250 MG PO (18:47)
== END 2023-04-18 18:15 | disposition home or self-care (01) ==
LOC: COL.ER 15:24
PROVIDERS: Nurse Practitioner
DX: J40 Bronchitis, not specified as acute or chronic (principal); I12.0 Hypertensive chronic kidney disease with stage 5 chronic kidney disease or end stage renal disease; N18.6 End stage renal disease; Z99.2 Dependence on renal dialysis; Z28.310 Unvaccinated for COVID-19

== ENCOUNTER 2024-03-11 00:04 | Emergency (ER) | payer MEDICARE ==
[~2024-03-11] VITALS: Ht 152.4 cm; Wt 61.8 kg
[~2024-03-11 00:04] MED LIST changes: +B-121000 MCG PO; +LOMOTIL 0.025 M1 TAB PO; +PROTONIX 40MG T40 MG PO; +TOPROL XL 50MG50 MG PO; +TYLENOL 8 HR PO; +VITAMIN E 400 U4001 PO; +ZITHROMAX 250M250 MG PO; +ZOFRAN ODT4 MG PO
[2024-03-11] MEDS ORDERED: Ketorolac 30 MG/ML VIAL IV ONE (01:30)
[2024-03-11] MEDS ORDERED: Ondansetron 4 MG/2 ML VIAL IV ONE (01:30)
[2024-03-11 01:33] LABS: BASO % 0.2 % (0.0-2.0); EOS # 0.3 K/mm3 (0.0-0.7); EOS % 2.9 % (0.0-4.0); GRAN # 9.2 K/mm3 (1.4-6.5); GRAN % 80.4 % (42.2-75.2); HEMATOCRIT 36.9 % (37.0-47.0); HEMOGLOBIN 11.4 g/dl (12.5-16.0); LYMPH # 1.2 K/mm3 (1.2-3.4); LYMPH % 10.8 % (20.0-51.0); MEAN CELL VOLUME 97 fl (80.0-100.0); MEAN CORPUSCULAR HEMOGLOBIN 30 pg (27-31); MEAN CORPUSCULAR HGB CONC 31 g/dl (33.0-37.0); MONO # 0.6 K/mm3 (0.1-0.6); MONO % 5.3 % (1.7-9.3); PLATELET COUNT 270 K/mm3 (130-400); REDCELL DISTRIBUTION WIDTH-CV 19.5 % (11.5-14.5)
[2024-03-11 01:46] LABS: BILIRUBIN,TOTAL 0.6 mg/dL (0.2-1.2); CALCIUM 8.2 mg/dL (8.4-10.2); CREATININE, serum 7.76 mg/dL (0.57-1.11); POTASSIUM 4.9 mEq/L (3.5-4.5); TOTAL PROTEIN 5.9 g/dl (6.2-8.1)
[2024-03-11 03:51] LABS: COLLECTION METHOD CLEAN CATCH
[2024-03-11 04:02] LABS: URINE APPEARANCE CLEAR (CLEAR/HAZY); URINE BLOOD NEGATIVE (NEGATIVE); URINE COLOR YELLOW (YELLOW); URINE GLUCOSE NEGATIVE (NEGATIVE); URINE KETONE NEGATIVE (NEGATIVE); URINE NITRATE NEGATIVE (NEGATIVE); URINE PROTEIN(semi-quant) 3+ (NEGATIVE); URINE UROBILINOGEN 0.2 E.U/dL (0.2-1.0)
[2024-03-11] MEDS ORDERED: LIDODERM 5% PATC1 EA TP (04:59)
[2024-03-11 05:10] VITALS: BP 148/71; PULSE 73; TEMP 98.5
== END 2024-03-11 05:20 | disposition home or self-care (01) ==
LOC: COL.ER 00:04
PROVIDERS: Emergency Medicine
DX: R10.9 Unspecified abdominal pain (principal); I12.0 Hypertensive chronic kidney disease with stage 5 chronic kidney disease or end stage renal disease; N18.6 End stage renal disease; Z99.2 Dependence on renal dialysis
CPT/HCPCS: J1885; J2360; J2405

== ENCOUNTER 2024-03-22 00:01 | Inpatient (IN) | payer MEDICARE, MEDICAID ==
[~2024-03-22] VITALS: Ht 149.9 cm; Wt 61.7 kg
[2024-03-22] VITALS (9 sets, daily range): BP systolic 122–167; BP diastolic 63–70; PULSE 82–96; TEMP 98.7–100.4
[~2024-03-22 00:01] MED LIST changes: +LIDODERM 5% PATC1 EA TP
[2024-03-22 00:42] LABS: BASO % 0.3 % (0.0-2.0); EOS % 0.2 % (0.0-4.0); GRAN # 12.5 K/mm3 (1.4-6.5); HEMATOCRIT 37.8 % (37.0-47.0); HEMOGLOBIN 11.5 g/dl (12.5-16.0); LYMPH # 0.7 K/mm3 (1.2-3.4); MEAN CELL VOLUME 96 fl (80.0-100.0); MEAN CORPUSCULAR HEMOGLOBIN 29 pg (27-31); MEAN CORPUSCULAR HGB CONC 30 g/dl (33.0-37.0); MEAN PLATELET VOLUME 10.7 fl (7.4-10.4); MONO # 0.6 K/mm3 (0.1-0.6); MONO % 4.1 % (1.7-9.3); PLATELET COUNT 200 K/mm3 (130-400); RED BLOOD COUNT 3.92 M/mm3 (4.10-5.30); REDCELL DISTRIBUTION WIDTH-CV 18.9 % (11.5-14.5)
[2024-03-22 00:51] LABS: INR 1.1 (0.8-3.0); PROTHROMBIN TIME 11.9 SECONDS (9.7-12.8)
[2024-03-22 01:03] LABS: ALBUMIN 2.4 g/dL (3.4-4.8); CALCIUM 8.2 mg/dL (8.4-10.2); CREATININE, serum 6.88 mg/dL (0.57-1.11); TOTAL PROTEIN 6.2 g/dl (6.2-8.1)
[2024-03-22 01:16] LABS: TROPONIN-I 0.117 ng/mL (0.00-0.033)
[2024-03-22] MEDS ORDERED: Morphine 4 MG/ML VIAL IV ONE (01:45)
[2024-03-22] MEDS ORDERED: cefTRIAXone 1 G in Water For Injection,Sterile 10 ML IV ONE (02:00)
[2024-03-22 02:39] LABS: COLLECTION METHOD CATHETER
[2024-03-22 02:49] LABS: URINE APPEARANCE CLOUDY (CLEAR/HAZY); URINE BLOOD NEGATIVE (NEGATIVE); URINE COLOR YELLOW (YELLOW); URINE GLUCOSE NEGATIVE (NEGATIVE); URINE KETONE NEGATIVE (NEGATIVE); URINE NITRATE NEGATIVE (NEGATIVE); URINE PROTEIN(semi-quant) 3+ (NEGATIVE); URINE UROBILINOGEN 0.2 E.U/dL (0.2-1.0)
[2024-03-22] MEDS ORDERED: Furosemide 100 MG/10 ML VIAL IV ONE (03:00)
[2024-03-22] MEDS ORDERED: SALONPAS1 EACH TP (03:15)
[2024-03-22] MEDS ORDERED: Lidocaine 4% Topical Patch TP PRN (03:15)
[2024-03-22] MEDS ORDERED: PREDNISONE20 MG PO (03:18)
[2024-03-22] MEDS ORDERED: LASIX 80MG TABL80 MG PO (03:21)
[2024-03-22] MEDS ORDERED: ENTRESTO 24 MG1 EACH PO (03:24)
[2024-03-22] MEDS ORDERED: Acetaminophen 325 MG TAB PO PRN (03:30)
[2024-03-22] MEDS ORDERED: Diphenoxylate/Atropine 2.5-0.025 MG TAB PO PRN (03:30)
[2024-03-22] MEDS ORDERED: Azithromycin 500 MG in NS 250 ML IV SCH (03:30)
--- NOTE | 2024-03-22 03:55 | NUR ---
PATIENT ADMITTED TO ROOM 358 BROUGHT UP BY [id number]. VITAL SIGNS-161/63 BP, 84 PULSE, 96% 1.5 02 NC, 98.8. ORIENTED TO ROOM. AXO X4. DENIES PAIN CURRENTLY. NC O2 AT 1.5L. STRAIGHT CATH PERFORMED FOR UA PER ORDERS-SPECIMEN SENT TO LAB. MED REC COMPLETE.
[2024-03-22] MEDS ORDERED: oxyCODONE 5 MG TAB PO PRN (04:15)
[2024-03-22] MEDS ORDERED: Albuterol/Ipratropium 3 MG-0.5 MG/3 ML Neb Soln IH PRN (04:15)
[2024-03-22 04:27] LABS: MAGNESIUM 2.2 mg/dL (1.6-2.6); PHOSPHOROUS 4.6 mg/dL (2.3-4.7)
--- NOTE | 2024-03-22 04:48 | NUR ---
YURIDIA Lord notified of critical troponin, trending down.
[2024-03-22 06:28] LABS: COLLECTION METHOD CATHETER
[2024-03-22 06:56] LABS: URINE APPEARANCE CLEAR (CLEAR/HAZY); URINE BLOOD NEGATIVE (NEGATIVE); URINE COLOR YELLOW (YELLOW); URINE GLUCOSE NEGATIVE (NEGATIVE); URINE KETONE NEGATIVE (NEGATIVE); URINE NITRATE NEGATIVE (NEGATIVE); URINE PROTEIN(semi-quant) 3+ (NEGATIVE); URINE UROBILINOGEN 0.2 E.U/dL (0.2-1.0)
[2024-03-22] MEDS ORDERED: Sevelamer Carbonate 800 MG TAB PO SCH (07:00)
[2024-03-22 07:30] LABS: URINE WBC 0-2 /hpf (0-2)
[2024-03-22 07:31] LABS: SQUAMOUS EPITHELIAL 0-2 /hpf (0-10); URINE BACTERIA NONE SEEN /hpf (NONE SEEN); URINE RBC 0-2 /hpf (0-2)
[2024-03-22] MEDS ORDERED: Heparin 5,000 UNITS/ML 1 ML VIAL SQ SCH (08:00)
[2024-03-22] MEDS ORDERED: Albuterol/Ipratropium 3 MG-0.5 MG/3 ML Neb Soln IH SCH (08:00)
[2024-03-22] MEDS ORDERED: D-Alpha Tocopheryl (Vitamin E) 400 Units (180 mg) CAP PO SCH (09:00)
[2024-03-22] MEDS ORDERED: Loperamide 2 MG CAP PO SCH ×2 (09:00→17:00)
[2024-03-22] MEDS ORDERED: traMADol 50 MG TAB PO SCH (09:00)
[2024-03-22] MEDS ORDERED: Furosemide 80 MG TAB PO SCH (09:00)
[2024-03-22] MEDS ORDERED: Cyanocobalamin (Vit B-12) 1,000 MCG TAB PO SCH (09:00)
[2024-03-22] MEDS ORDERED: Ascorbic Acid 500 MG TAB PO SCH (09:00)
[2024-03-22] MEDS ORDERED: Cholecalciferol (Vit D3) 1000 Units TAB PO SCH (09:00)
[2024-03-22] MEDS ORDERED: Colestipol 1 G TAB PO SCH (09:00)
--- NOTE | 2024-03-22 09:43 | NUR ---
Patient resting in bed, alert and oriented x4, states pain 5/10 pain med given. Assessment completed meds provided. No further needs at this time. Call light within reach.
[2024-03-22] MEDS ORDERED: Heparin 1,000 UNITS/ML 10 ML Multi-Dose VIAL IV SCH ×2 (10:15)
--- NOTE | 2024-03-22 12:17 | NUR ---
D: Bacon De Rinder stopped by room on rounds. A: Pt was resting and content. Pt moved her a few years ago to be closer to her son. Pt has no needs right now. P: Bacon De Rinder informed pt that if she needed anything from the c d reactor operator area to let her nurse know. Bacon De Rinder will follow up as needed.
--- NOTE | 2024-03-22 14:36 | NUR ---
Mission Manager attempted to meet with patient while in dialysis, however she stated she was in a great amount of pain and would prefer to talk tomorrow morning. SW will follow up.
--- NOTE | 2024-03-22 15:35 | NUR ---
Blood culture lab results Gram neg unidentified, given to Viry Mercer. No further orders.
[2024-03-22] MEDS ORDERED: Cefepime 1 G in Water For Injection,Sterile 10 ML IV SCH (16:30)
--- NOTE | 2024-03-22 16:39 | NUR ---
Patient is back in the room from dialysis. Her back pain under control. She ordered dinner. Aware of dialysis again tomorrow.
[2024-03-22] MEDS ORDERED: Gabapentin 300 MG CAP PO SCH (21:00)
[2024-03-22] MEDS ORDERED: amLODIPine 5 MG TAB PO SCH (21:00)
[2024-03-22] MEDS ORDERED: traZODone 100 MG TAB PO SCH (21:00)
[2024-03-22] MEDS ORDERED: Atorvastatin 80 MG TAB PO SCH (21:00)
[2024-03-22] MEDS ORDERED: Sodium Bicarbonate 650 MG TAB PO SCH (21:00)
[2024-03-23] VITALS (12 sets, daily range): BP systolic 101–137; BP diastolic 58–78; PULSE 71–84; TEMP 97.9–99.6
[2024-03-23] MEDS ORDERED: cefTRIAXone 1 G in Water For Injection,Sterile 10 ML IV SCH ×2 (01:00→21:00)
--- NOTE | 2024-03-23 01:00 | NUR ---
patient lying in bed, alert and oriented x4. denies chest pain and reports having shortness of breath only on exertion and pain 10/10 to right back/ribs, ultram given per request. JOAO fistula noted with JOAO restiction. sacral blanchable redness, skin intact, barrier cream and mepilex applied. BLE +2 pitting reji noted. IV in LF is patent, site CDI. fall precautions in place, call light within reach. pt has no further needs, questions or concerns at this time.
[2024-03-23 07:15] LABS: BASO % 0.2 % (0.0-2.0); EOS # 0.1 K/mm3 (0.0-0.7); EOS % 0.4 % (0.0-4.0); GRAN # 14.1 K/mm3 (1.4-6.5); GRAN % 87.7 % (42.2-75.2); HEMOGLOBIN 8.9 g/dl (12.5-16.0); LYMPH # 1.2 K/mm3 (1.2-3.4); LYMPH % 7.4 % (20.0-51.0); MEAN CELL VOLUME 94 fl (80.0-100.0); MEAN CORPUSCULAR HEMOGLOBIN 30 pg (27-31); MEAN CORPUSCULAR HGB CONC 32 g/dl (33.0-37.0); MONO # 0.6 K/mm3 (0.1-0.6); MONO % 3.7 % (1.7-9.3); PLATELET COUNT 191 K/mm3 (130-400); RED BLOOD COUNT 2.98 M/mm3 (4.10-5.30); REDCELL DISTRIBUTION WIDTH-CV 19.3 % (11.5-14.5)
[2024-03-23 07:24] LABS: ALBUMIN 2.1 g/dL (3.4-4.8); BILIRUBIN,TOTAL 0.5 mg/dL (0.2-1.2); CALCIUM 7.7 mg/dL (8.4-10.2); CREATININE, serum 4.87 mg/dL (0.57-1.11); POTASSIUM 4.6 mEq/L (3.5-4.5); TOTAL PROTEIN 5.3 g/dl (6.2-8.1)
--- NOTE | 2024-03-23 09:54 | NUR ---
SHIFT ASSESSMENT COMPLETE. VSS. PATIENT AWAKE IN BED FINISHING UP BREAKFAST AND AWAITING TO GO DOWN TO DIALYSIS. MORNING MEDS HELD DUE TO DIALYSIS. PATIENT STATES HAVING PAIN 8/10 PAIN MED GIVEN PER PATIENTS REQUEST ORDERED. PATIENT HAS NO OTHER RQUEST AT THIS TIME. FALL PRECAUTIONS IN PLACE AND CALL LIGHT IN REACH
--- NOTE | 2024-03-23 13:21 | NUR ---
Dialysis Note Pt arrived via goal was set for 3.3 and 2.7 removed d/t pt ending TX early. Dr Castanon was notified and report given to Primary RN. Pt educated on tx adherence.
--- NOTE | 2024-03-23 14:16 | NUR ---
RA SPO2 89% PLACED ON 1 LPM NC SPO2 91% RN NOTIFIED
--- NOTE | 2024-03-23 16:10 | NUR ---
fire crew worker met with patient to discuss discharge planning. Patient lives in [place] with her life partner, Boni, P# [phone], Elieser is patient's DPOA-HC P# [phone]. PCP is Dr. Arana, Pharmacy is [facility], no issues affording medications. Insurance is medicare All Well. DPOA-HC is Elieser. DME is walker, wheelchair, power chair. Patient is not on oxygen normally but is needing oxygen at home. Patient reports normally she is independent with ADLS. Boni transports her to and from appointments. SW discussed PT recommendation of SNF and provided the Medicare.gov list of options. Patient stated she did not want to go to SNF. Patient may be open to home health services but stated that was a "maybe". SW contacted patient's son, Elieser, and notified him of the recommendation of SNF. Elieser stated he would be willing to speak with patient about SNF but does not promise it would change patient's mind. SW understood. Discharge plan: Recommending SNF, may go home with home health
--- NOTE | 2024-03-23 20:56 | NUR ---
SHIFT ASSESSMENT COMPLETED AT THIS TIME. PT A&OX4. PT REPORTS 8/10 PAIN THROUGHOUT BODY BUT REPORTS THIS IS HER NOMRMAL BASELINE. EVENING MEDICATIONS ADMINSITERED AT THIS TIME WITHOUT COMPLICATIONS. SCHEDULED TRAMADOL ADMINISTERED WITH THESE MEDICATIONS. SCATTERED BRUISING THORUGHT BILAT ARMS AND HANDS. +1 EDEMA NOTED TO BLE. RIGHT FISTULA TO RIGHT UPPER ARM. PT REFUSES TO WEAR ID BAND AND RESTRICTION ARMBAND. TELE IN PLACE. PT RESTING IN BED. FALL PRECAUTIONS IN PLACE. PT HAS NO QUESTIONS OR FURTHER NEEDS AT THIS TIME.
[2024-03-24] VITALS (11 sets, daily range): BP systolic 116–143; BP diastolic 58–70; PULSE 68–82; TEMP 97.7–98.7
[2024-03-24 06:49] LABS: BASO % 0.3 % (0.0-2.0); EOS # 0.2 K/mm3 (0.0-0.7); EOS % 1.1 % (0.0-4.0); GRAN # 13.4 K/mm3 (1.4-6.5); GRAN % 84.3 % (42.2-75.2); LYMPH # 1.3 K/mm3 (1.2-3.4); LYMPH % 8.4 % (20.0-51.0); MEAN CELL VOLUME 94 fl (80.0-100.0); MEAN CORPUSCULAR HGB CONC 31 g/dl (33.0-37.0); MEAN PLATELET VOLUME 11.1 fl (7.4-10.4); MONO # 0.8 K/mm3 (0.1-0.6); MONO % 4.9 % (1.7-9.3); PLATELET COUNT 165 K/mm3 (130-400); RED BLOOD COUNT 2.64 M/mm3 (4.10-5.30)
[2024-03-24 07:03] LABS: HEMATOCRIT 24.8 % (37.0-47.0); HEMOGLOBIN 7.7 g/dl (12.5-16.0); MEAN CORPUSCULAR HEMOGLOBIN 29 pg (27-31)
[2024-03-24 07:14] LABS: ALBUMIN 1.8 g/dL (3.4-4.8); BILIRUBIN,TOTAL 0.4 mg/dL (0.2-1.2); CALCIUM 7.9 mg/dL (8.4-10.2); CREATININE, serum 4.11 mg/dL (0.57-1.11); POTASSIUM 4.3 mEq/L (3.5-4.5); TOTAL PROTEIN 4.9 g/dl (6.2-8.1)
[2024-03-24] MEDS ORDERED: D-Alpha Tocopheryl (Vitamin E) 400 Units (180 mg) CAP PO SCH (09:00)
--- NOTE | 2024-03-24 09:11 | NUR ---
Patient is resting in bed, alert and oriented x 4, some HTN 140'S systolic. States generalized pain, mostly ribs and legs. Assessment completeted, meds given. She asked for additional pain med. PRN provided. No further needs at this time. Call light within reach. Bed alarm on.
--- NOTE | 2024-03-24 10:03 | NUR ---
SW met with patient in room to follow up on discharge planning. No family present. Discussed patient's abiltiy to work with therapy yesterday being limited. Patient reported that she's been able to ambulate to bathroom in her room. Discussed recommendation for rehab. Patient has Medicare.gov list at bedside and stated the only place she would consider would be [facility] but she "doesn't really want to go anywhere but home." Discussed that SW will revisit patient after she works with therapy today and discussed recommendations. Patient agreeable Discharge plan: SNF vs Home with HH
--- NOTE | 2024-03-24 15:52 | NUR ---
OMAR sent clinicals to [facility] per patient's request. Discharge plan: Home with
--- NOTE | 2024-03-24 21:45 | NUR ---
Pt. c/o pain rated 9/10. Scheduled meds administered per SEP. Shift assessment complete. Pt. is on room air at this time. Lung sounds are clear across the Lt lobe and upper Rt. lobe; fine crackles auscultated across Rt middle and lower lobe. Scattered bruising to BUE. Bottom is reddened and dressed w/ mepilex. Dressing CDI. Bruising to dorsal aspect of Lt first and second toes. Small scabbed abrasion to ventral aspect of Lt. first toe. No further outstanding findings. Pt. denies request. Call light in reach and fall precautions in place.
[2024-03-25] VITALS (11 sets, daily range): BP systolic 125–154; BP diastolic 69–72; PULSE 76–81; TEMP 97.1–99.3
--- NOTE | 2024-03-25 04:00 | NUR ---
PCT reports pt's O2 saturation is reading 83% on room air. Pt. restarted on O2 at 2L/min via nasal cannula. Respiratory therapist notified.
--- NOTE | 2024-03-25 06:08 | NUR ---
Pt. resting in bed w/ call light in reach and fall precautions in place. Denies complaints or request at this time.
[2024-03-25 06:33] LABS: BASO % 0.2 % (0.0-2.0); EOS # 0.1 K/mm3 (0.0-0.7); EOS % 1.1 % (0.0-4.0); LYMPH # 1.4 K/mm3 (1.2-3.4); LYMPH % 10.9 % (20.0-51.0); MEAN CELL VOLUME 93 fl (80.0-100.0); MEAN CORPUSCULAR HGB CONC 31 g/dl (33.0-37.0); MEAN PLATELET VOLUME 11.1 fl (7.4-10.4); MONO # 0.9 K/mm3 (0.1-0.6); MONO % 7.1 % (1.7-9.3); PLATELET COUNT 209 K/mm3 (130-400); RED BLOOD COUNT 3.03 M/mm3 (4.10-5.30); REDCELL DISTRIBUTION WIDTH-CV 18.6 % (11.5-14.5)
[2024-03-25 06:45] LABS: HEMATOCRIT 28.2 % (37.0-47.0); HEMOGLOBIN 8.8 g/dl (12.5-16.0); MEAN CORPUSCULAR HEMOGLOBIN 29 pg (27-31)
[2024-03-25 06:51] LABS: ALBUMIN 1.8 g/dL (3.4-4.8); BILIRUBIN,TOTAL 0.4 mg/dL (0.2-1.2); CALCIUM 7.9 mg/dL (8.4-10.2); CREATININE, serum 5.18 mg/dL (0.57-1.11); POTASSIUM 4.7 mEq/L (3.5-4.5); TOTAL PROTEIN 5.1 g/dl (6.2-8.1)
--- NOTE | 2024-03-25 08:35 | NUR ---
Patient resting in bed, easily arousable, alert and orinted x 4, states she had a good night. Patient on 2L O2 NC, since she desat at night. Assessment completed, meds given. No further needs at this time. Call light within reach.
--- NOTE | 2024-03-25 12:49 | NUR ---
OMAR sent clinical updates to [facility] via secure email Discharge plan: Home with
[2024-03-25] MEDS ORDERED: Heparin 1,000 UNITS/ML 10 ML Multi-Dose VIAL IV SCH (13:45)
--- NOTE | 2024-03-25 22:30 | NUR ---
Patient resting in bed with eyes closed. Assissted patient to bedside commode and back to bed. Rates pain at 9/10, scheduled pain meds given. Needs met. Assessment complete. IV in left forearm flushes easliy without complications. Call light and personal items in reach. Bed in low position and bed alarm on.
[2024-03-26] VITALS (13 sets, daily range): BP systolic 116–151; BP diastolic 65–69; PULSE 75–87; TEMP 97.5–100.3
--- NOTE | 2024-03-26 07:05 | NUR ---
PT IS SLEEPING IN BED. PT IS ON 2L NC. PT IS SR ON TELE. CALL LIGHT WITH IN REACH AND BED ALARM ACTIVE.
--- NOTE | 2024-03-26 08:09 | NUR ---
0802-PT TAKEN DOWN TO DIALYSIS.
[2024-03-26 08:35] LABS: MEAN CELL VOLUME 91 fl (80.0-100.0); MEAN CORPUSCULAR HGB CONC 31 g/dl (33.0-37.0); MEAN PLATELET VOLUME 10.5 fl (7.4-10.4); PLATELET COUNT 236 K/mm3 (130-400); RED BLOOD COUNT 3.36 M/mm3 (4.10-5.30); REDCELL DISTRIBUTION WIDTH-CV 18.3 % (11.5-14.5)
[2024-03-26 08:43] LABS: HEMOGLOBIN 9.5 g/dl (12.5-16.0); MEAN CORPUSCULAR HEMOGLOBIN 28 pg (27-31)
[2024-03-26 08:44] LABS: HEMATOCRIT 30.7 % (37.0-47.0)
[2024-03-26] MEDS ORDERED: AMOXICILLIN/CLA1 TA1 PO (08:44)
[2024-03-26 08:55] LABS: BAND 11 % (0-10); EOSINOPHIL 1 % (0-4); LYMPHOCYTE 11 % (20.0-51.0); NEUTROPHILS 72 % (42.0-75.2); PLATELET ESTIMATE NORMAL (NORMAL)
[2024-03-26 09:01] LABS: ALBUMIN 1.6 g/dL (3.4-4.8); BILIRUBIN,TOTAL 0.3 mg/dL (0.2-1.2); CALCIUM 8.1 mg/dL (8.4-10.2); CREATININE, serum 4.89 mg/dL (0.57-1.11); POTASSIUM 4.7 mEq/L (3.5-4.5); TOTAL PROTEIN 5.3 g/dl (6.2-8.1)
--- NOTE | 2024-03-26 10:37 | NUR ---
SW met with patient to review Medicare IM form. Patient in dialysis treatment and verbalized understanding and gave permission for SW to sign on her behalf. Form signed, original on chart, copy to patient. Patient voiced that her friend will pick her up at discharge. HH will be provided with clinical updates and orders when completed.
--- NOTE | 2024-03-26 13:29 | NUR ---
1200 PT BACK FROM HD. 2.3L REMOVED. PT'S VSS. PT EATING LUNCH. 1215 SPOKE WITH PT TO COME AND SEE PT AND ASSESS FOR SAFE DISCHARGE. 1300 SPOKE WITH RT REGARDING EXCERSISE OX ORDER.
--- NOTE | 2024-03-26 13:40 | NUR ---
SONIDO MARCUS NOTIFIED THAT PT IS AGREEABLE TO REHAB. SW AWARE AND WORKING ON PLACEMENT. PT BEDSIDE TO WORK WITH PT.
--- NOTE | 2024-03-26 17:06 | NUR ---
bakery worker attended interdisciplinary clinical rounding with Dr. Contreras. Patient is medically ready for discharge. SW contacted patient's significant other/caregiver and reviewed their recommendation for SNF. They agreed patient should go to a SNF before returning home due to her weakness and he is worried about her falling again. OMAR met with patient whom expressed she had changed her mind and would like to go to SNF after speaking with her significant other. Patient's first preference is [facility]. SW explained [facility] has been full, so she wanted to get a second and third choice just in case. Patient is okay with [facility] and [facility] and was hoping not to go outside of [place]. OMAR spoke with patient's nurse whom was in agreement with SNF as patient had difficulty with transfers. OMAR Tianna secure emailed referrals to [facility], [facility] and [facility]. OMAR was notified [facility] is unable to accept. OMAR was notified [facility] is reviewing. OMAR was notified [facility] is reviewing but they were concerned about patient's dialysis times being on TTS. OMAR contacted [facility] to determine if they had any openings on MWF, OMAR was notified they do not have any openings. OMAR will follow up with placement options tomorrow. Discharge plan: SNF
--- NOTE | 2024-03-26 20:30 | NUR ---
UPON SHIFT ASSESSMENT, POLINA WAS AWAKE IN BED AND AXO X4. SHE STILL EXHIBITS WEAKNESS AND PIVOT TO COMMODE IS MAX 2 ASSIST. LUNG SOUNDS AUSCULTATED FINE CRACKLES IN UPPER LOBES THAT CLEARED WITH COUGH. LUNG EXPANSION EQUAL BILATERALLY AND PATIENT CURRENTLY DENIES SOA OR CHEST PAIN. POLINA DOES C/O OF 8/10 RT RIB PAIN. ULTRAM ADMINISTERED. GENERALIZED EDEMA R/T ESRD NOTED. VS ARE WNL AND TELE IS NS. PATIENT STATES NO NEEDS AT THIS TIME. CALL LIGHT WITHIN REACH, BED ALARM ON.
[2024-03-27] VITALS (12 sets, daily range): BP systolic 109–145; BP diastolic 63–78; PULSE 81–91; TEMP 97.2–99.3
--- NOTE | 2024-03-27 01:00 | NUR ---
ALERTED BY PCTCHECO. POLINA PULLED OFF 02 AND DE SATED TO 87%. NC 02 2L RE ESTABLISHED AND 02 SAT 93%. PATIENT EDUCATION PROVIDED.
[2024-03-27 07:14] LABS: CALCIUM 8.6 mg/dL (8.4-10.2); CREATININE, serum 4.72 mg/dL (0.57-1.11); POTASSIUM 5.2 mEq/L (3.5-4.5)
[2024-03-27 07:17] LABS: HEMOGLOBIN 10.4 g/dl (12.5-16.0); MEAN CELL VOLUME 95 fl (80.0-100.0); MEAN CORPUSCULAR HEMOGLOBIN 30 pg (27-31); MEAN CORPUSCULAR HGB CONC 32 g/dl (33.0-37.0); MEAN PLATELET VOLUME 11.1 fl (7.4-10.4); PLATELET COUNT 249 K/mm3 (130-400); RED BLOOD COUNT 3.49 M/mm3 (4.10-5.30); REDCELL DISTRIBUTION WIDTH-CV 18.5 % (11.5-14.5)
[2024-03-27 07:47] LABS: BAND 3 % (0-10); LYMPHOCYTE 10 % (20.0-51.0); NEUTROPHILS 81 % (42.0-75.2); PLATELET ESTIMATE NORMAL (NORMAL)
[2024-03-27 07:48] LABS: ANISOCYTOSIS 3+; HYPOCHROMIA 1+; OVALOCYTES 2+
--- NOTE | 2024-03-27 10:13 | NUR ---
PATIENT SITTING UP IN BED. ALERT AND ORIENTED. SHIFT ASSESSMENT COMPLETE. PATIENT REFUSED HYGIENE THIS AM FROM PCT. SAYS "I WANT TO GIVE MYSELF A BED BATH." BUTTOCKS IS RED, BUT INTACT. MIPLEX DRSG IN PLACE. SCATTERED SCABS ON EXTREMITIES. STATES PAIN IN HER RIBS IS 9/10. SCHEDULED PRN TRAMADOL GIVEN. WILL REASSESS. DENIES FURTHER NEEDS OR CONCERNS AT THIS TIME. CALL LIGHT WITHIN REACH.
--- NOTE | 2024-03-27 14:11 | NUR ---
manufacturing worker was notified [facility] is unable to accept. SW was notified [facility] is unable to accept due to insurance. OMAR contacted [facility] whom expressed they are unable to accept patient due to dialysis needs. OMAR faxed and secure emailed referral to [facility] in [place]. OMAR spoke with [facility] whom expressed they could accept if patient ends up being able to return home. Discharge plan: SNF- pending accepting facility
--- NOTE | 2024-03-27 15:07 | NUR ---
fruit or nut farmworker was notified [facility] is unable to accept due to the dialysis center in [place] closing. OMAR contacted [facility] whom stated they are unable to accept due to dialysis needs. OMAR left a voicemail for [facility]. OMAR left a voicemail for [facility]. OMAR gupta emailed a referral to [facility], [facility], [facility] and [facility]. OMAR Wynn contacted the [facility] to determine if they would have any availability in their schedule for patient to have dialysis there if she were to go to a rehab facility in that area. [facility] will get back with the child welfare social worker. OMAR Wynn left a voicemail for [facility]. OMAR Wynn contacted [facility] in [place] whom expressed they are unable to accept dialysis patients at this time. OMAR Wynn left a voicemail with [facility]. OMAR Wynn contacted [facility] whom expressed they would be unable to accept due to dialysis needs. OMAR Wynn contacted [facility] whom expressed they are unable to accept due dialysis needs. OMAR was notified [facility] does not accept patients with dialysis. OMAR contacted [facility] to determine if patient has Medicaid to assist with transportation to get to and from appointments which may open up options for SNF. Patient has medicaid through [employer]. OMAR contacted [facility] to determine if they would reconsider patient's referral since patient has [place]. Collins at [facility] is willing to meet with the team again to discuss this. OMAR resent the information to Collins at [facility]. Discharge plan: SNF
[2024-03-27] MEDS ORDERED: Heparin 1,000 UNITS/ML 10 ML Multi-Dose VIAL IV SCH (17:30)
--- NOTE | 2024-03-27 22:30 | NUR ---
Patient resting in bed with eyes closed. Rates pain at 10/10 on right side, prn pain med given. Denies any needs. Assessment complete. IV in left forearm flsuhes easliy without complications. Call light and personal items in reach. Bed in low position and bed alarm on.
[2024-03-28] VITALS (11 sets, daily range): BP systolic 126–146; BP diastolic 64–75; PULSE 71–88; TEMP 97.9–101.4
[2024-03-28 06:47] LABS: CALCIUM 8.8 mg/dL (8.4-10.2); CREATININE, serum 5.66 mg/dL (0.57-1.11); POTASSIUM 5.6 mEq/L (3.5-4.5)
--- NOTE | 2024-03-28 11:22 | NUR ---
Dialysis note Pt arrived via bed. Uf goal set for 2.5 kg and 2.5 kg removed. Pt tolerated tx well and dcd back to room via bed without complaints.
--- NOTE | 2024-03-28 11:44 | NUR ---
SW met with patient to review Medicare IM form. Patient voiced understanding and signed form. Original on chart, copy to patient. Patient stating that "I'd like to go tomorrow if I can." SW informed if acceptance is secured she will discharge today due to medical stability. Patient voiced understanding.
[2024-03-28 13:58] LABS: MEAN CELL VOLUME 95 fl (80.0-100.0); MEAN CORPUSCULAR HEMOGLOBIN 29 pg (27-31); MEAN CORPUSCULAR HGB CONC 31 g/dl (33.0-37.0); MEAN PLATELET VOLUME 12.6 fl (7.4-10.4); PLATELET COUNT 270 K/mm3 (130-400); RED BLOOD COUNT 3.76 M/mm3 (4.10-5.30); REDCELL DISTRIBUTION WIDTH-CV 18.6 % (11.5-14.5)
[2024-03-28 13:59] LABS: HEMATOCRIT 35.6 % (37.0-47.0)
[2024-03-28 14:59] LABS: BAND 4 % (0-10); LYMPHOCYTE 15 % (20.0-51.0); NEUTROPHILS 75 % (42.0-75.2)
--- NOTE | 2024-03-28 15:38 | NUR ---
SW sent referral for SNF to: [facility], [facility], [facility], [facility], [facility], [facility], [facility], [facility] and [facility] in [place]
--- NOTE | 2024-03-28 15:55 | NUR ---
piece worker contacted [facility] whom expressed they are unable to transport due to not having availability on TTS. SW was notified by [facility] that they could accept even if dialysis was in [place]. SW was notified that [facility] was considering patient but would need her dialysis in [place] and wanted to see if she would be okay with switching her primary care physician while there. SW was notified [facility] has an opening on MWF in [place] at 545 am. OMAR notified Collins at [facility] of this as patient wants to remain in [place] to be near her family. SW met with patient regarding the above information. SW explained the options. Patient stated she was open to the options but would prefer [place] or [place] as [place] is closer than [place] for her. SW was notified [facility] still is unable to accept patient. SW was notified [facility] and [facility] are unable to meet patient's needs right now for dialysis transportation. SW was notified by [facility] that they would not be able to accept due to transportation issues now. OMAR asked if they would reconsider since patient has Medicaid. SW was notified they would discuss and get back with the public health social worker. OMAR faxed and secure emailed referral to [facility]. [facility] is going to touch base with family members but is also worried about the transportation concerns. OMAR contacted [facility] speeder worker, Mackenzie, to determine if they can think of any other options to help keep patient with their clinic otherwise they would have to look farther out. Mackenzie stated this has been common lately that they have to send patient to another dialysis clinic due to rehab being out of town. OMAR explained she would keep her updated if patient is moved out of town. [facility] does not have any openings, public health social worker explained if there were any openings that came up to keep patient in mind. OMAR left a voicemail with [facility] to determine if it would change their mind now that patient has confirmed Medicaid insurance for transportation. OMAR faxed referral to [facility]. OMAR contacted [facility] about considering a one time contract for out of network coverage for patient. Ashwin at [facility] stated they did not know if corporate would allow this but welcomed public health social worker to discuss with insurance company. OMAR Ma and OMAR emailed insurance manager of case to determine if they are able to assist with patient's placement. OMAR Wynn faxed referrals to additional facilities, see Tianna's note. Discharge plan: SNF
--- NOTE | 2024-03-28 22:18 | NUR ---
PATIENT RESTING IN BED WITH EYES CLOSED, EASILY ROUSED. REPORTS PAIN IN RIGHT SIDE 9/10. CALL LIGHT WITHIN REACH. BED IS LOCKED AND IN LOW POSITION
[2024-03-29] VITALS (8 sets, daily range): BP systolic 123–135; BP diastolic 57–76; PULSE 60–79; TEMP 97.3–98.8
[2024-03-29 06:45] LABS: MEAN CELL VOLUME 97 fl (80.0-100.0); MEAN CORPUSCULAR HGB CONC 30 g/dl (33.0-37.0); PLATELET COUNT 298 K/mm3 (130-400); RED BLOOD COUNT 3.17 M/mm3 (4.10-5.30); REDCELL DISTRIBUTION WIDTH-CV 18.4 % (11.5-14.5)
[2024-03-29 06:47] LABS: HEMATOCRIT 30.7 % (37.0-47.0); HEMOGLOBIN 9.3 g/dl (12.5-16.0); MEAN CORPUSCULAR HEMOGLOBIN 29 pg (27-31)
[2024-03-29 07:22] LABS: CALCIUM 8.8 mg/dL (8.4-10.2); CREATININE, serum 4.52 mg/dL (0.57-1.11); POTASSIUM 4.9 mEq/L (3.5-4.5)
[2024-03-29 07:42] LABS: ANISOCYTOSIS 2+; BAND 6 % (0-10); EOSINOPHIL 2 % (0-4); LYMPHOCYTE 14 % (20.0-51.0); METAMYELOCYTE 1 % (0-0); NEUTROPHILS 71 % (42.0-75.2); PLATELET ESTIMATE NORMAL (NORMAL)
--- NOTE | 2024-03-29 09:29 | NUR ---
Patient resting in bed, alert and oriented x 4, VSS. States she wants to go home. Gettig 2L O2 NC. Desats at RA to lower 80's. Assessment completed, meds given. No further needs at this time. Call light within reach.
--- NOTE | 2024-03-29 12:14 | NUR ---
table worker was notified patient is wanting to return home today as the nursing facilities discussed yesterday were too far for her family to transport for dialysis or come visit. SW met with patient and expressed they have concerns about patient returning home and would still be recommending a nursing facility for rehab. Patient stated her son expressed she would be too far to visit if she were to go to [place] or farther out. SW explained patient would need to work with PT and OT today to see if returning home would even be managable. Patient understood. Patient confirmed she has a wheelchair at home along with a walker and power chair. SW was notified [facility] unable to accept. SW met with PT and OT and they stated that patient was able to transfer with one person SBA from bed to wheelchair. They would still recommend nursing facility for rehab but understand that patient is wanting to return home with home health. OMAR met with Dr. Contreras and updated him on this information. OMAR and Dr. Contreras met with patient to discuss discharge plan. Dr. Contreras and OMAR explained they were still recommending patient go to a nursing facility but unfortunately it would be out of town about an hour [address] one way. Patient stated that was too far for her son and significant other to drive to visit her. Patient stated her son lives a block a way from them and she would like to go home with home health. SW explained PT and OT reported patient was able to transfer to the wheelchair this morning from the bed. Patient requested a bedside commode upon discharge. OMAR contacted [facility] whom expressed they have a bedside commode available. SW notified patient and asked her what her bathroom looked it specifically the shower if she would need a tub transfer bench or shower chair. Patient stated she has a tub and would benefit from a tub transfer bench but normally she uses wipes to clean herself but occasionally likes to get in the tub if she is able to. OMAR contacted [facility] again and confirmed they have a tub transfer bench. SW provided information regarding [facility] to patient to poultry picker the bedside commode and tub transfer bench. SW provided the contact information for transportation with her Medicaid if needed. Patient understood. Patient could not think of any other equipment she would need. SW discussed with patient that it is important to work with home health. Patient stated she would and she wrote down the agency information down to remind her. SW explained they would be calling her to set up the first appointment. Patient understood. Patient stated would like her oxygen at [facility] as it is closer to her home. SW was notified [facility] can accept patient. OMAR secure emailed and faxed discharge orders and updates to [facility]. OMAR faxed orders for oxygen to [facility]. OMAR was notified [facility] stated they could work out the transportation but it would take a bit to get it sorted out. OMAR explained patient is returning home with home health but she will let the family know that they would be an option if patient decided it was not working out at home. [facility] will keep patient's information just in case. OMAR was notified by [facility] that they were waiting on insurance authorization but they would reach out to the family on Tuesday to check in if everything was going okay at home. OMAR explained she would notify the family that they would be in touch. Discharge plan: Recommending SNF but patient wants to return home with home health
--- NOTE | 2024-03-29 13:44 | NUR ---
farmworker field crop spoke with Boni, patient's significant other, to discuss discharge plan. Boni understands patient wants to return home with home health. He was open to [facility] or [facility] for rehab for her but understands that they are unable to accept. OMAR explained patient will be on oxygen and she is getting that set up through [facility] and the portable tank will arrive before patient discharges today. Boni stated he would be up after 230 pm to bulk picker patient. OMAR explained they would need to bulk picker patient's bedside commode and tub transfer bench. OMAR explained where to pick that up and that she provided the address to patient on a piece of paper. Boni understood and explained he would bulk picker those items with the patient. OMAR explained if patient returns home and does not do well and is agreeable for SNF, [facility] and [facility] expressed they were able to accept. OMAR explained [facility] is in [place] and [facility] is in [place]. Boni stated he believes those would be too far for him to visit. OMAR explained she understood but if patient needs rehab in a facility, they could contact those facilities within 30 days of discharge from the hospital. Boni understood. OMAR contacted patient's son and explained the above information. Patient's son explained patient was not willing to go anywhere that was not a 5 star facility and he informed [facility] that they were wasting their time with the referral. OMAR explained patient was willing to go any facility that was within 30-40 mile radius but ended up chosing not to go to [facility] because he would be unable to visit her. Elieser stated he would not be able to visit but stated he does not visit on a daily basis as is. OMAR explained patient will be discharging home with home health because she does not want to go outside of the [place] limits but if she gets home and needs SNF, [facility] and [facility] would be able to accept patient. OMAR explained the other facilities in [place] are full so those were the only facilities willing to accept. OMAR explained patient will discharge home on oxygen and she set her up with a bedside commode and tub transfer bench. Elieser stated "good luck getting her to use that." OMAR explained patient requested that equipment, Elieser stated "oh wow." OMAR asked if Elieser could think of anything else that would benefit patient. Elieser stated as long as Boni was able to help her, she should be good but if patient ever relied on him, "she might as well ." OMAR stated Boni was willing to help patient with anything but it would be beneficial for him to be involved if possible. No further questions or concerns. OMAR confirmed [facility] received the orders and will be bringing it up to patient's room shortly. SW notified patient's nurse and patient. OMAR met with patient and informed her of the accepting facilities and if she needed to go somewhere she would have 30 days from discharge. OMAR explained the oxygen was on its way to her. SW reminded her that she would need to bulk picker the bedside commode and tub transfer bench from [facility]. SW gave the closing time for [facility] for the next couple days, patient stated she would bulk picker either today or tomorrow. OMAR was notified [facility] unable to accept. OMAR was notified [facility] able to [facility]. OMAR explained patient will be discharging home with home health. [facility] stated they would keep patient in mind in case patient needs SNF after returning home.
--- NOTE | 2024-03-29 15:39 | NUR ---
gang worker contacted patient's PCP office and spoke with Catie. OMAR notified Catie that patient was accepted at two facilities in [place] but patient is not willing to go there due to family not being able to see her. OMAR explained we are getting her set up with [facility] and working on an expediated request. Catie stated patient has an appointment on Tuesday with Dr. Arana as a follow up. OMAR made APS report: Intake ID [id number]
== END 2024-03-29 15:18 | disposition home health service (06) | DRG 280 ==
LOC: COL.ER 00:01 → MEDICAL 02:09
PROVIDERS: Emergency Medicine; Internal Medicine; Nurse Practitioner Family; Physician Assistant; ADMIT Internal Medicine
PROC: 5A1D70Z Performance of Urinary Filtration, Intermittent, Less than 6 Hours Per Day (ICD-10-PCS; principal; 2024-03-22)
DX: I13.2 Hypertensive heart and chronic kidney disease with heart failure and with stage 5 chronic kidney disease, or end stage renal disease (principal); I50.33 Acute on chronic diastolic (congestive) heart failure; I21.A1 Myocardial infarction type 2; N18.6 End stage renal disease; J96.01 Acute respiratory failure with hypoxia; C64.1 Malignant neoplasm of right kidney, except renal pelvis; N25.81 Secondary hyperparathyroidism of renal origin; M84.48XA Pathological fracture, other site, initial encounter for fracture; R78.81 Bacteremia; Z66 Do not resuscitate; D63.1 Anemia in chronic kidney disease; I27.20 Pulmonary hypertension, unspecified; M81.0 Age-related osteoporosis without current pathological fracture; F41.9 Anxiety disorder, unspecified; F32.A Depression, unspecified; K52.9 Noninfective gastroenteritis and colitis, unspecified; G89.4 Chronic pain syndrome; E78.5 Hyperlipidemia, unspecified; M48.061 Spinal stenosis, lumbar region without neurogenic claudication; I34.0 Nonrheumatic mitral (valve) insufficiency; E87.70 Fluid overload, unspecified; B96.89 Other specified bacterial agents as the cause of diseases classified elsewhere; E87.5 Hyperkalemia; E03.9 Hypothyroidism, unspecified; Z99.2 Dependence on renal dialysis; Z98.51 Tubal ligation status; Z90.49 Acquired absence of other specified parts of digestive tract; Z88.1 Allergy status to other antibiotic agents; Z88.2 Allergy status to sulfonamides; Z88.8 Allergy status to other drugs, medicaments and biological substances; Z91.018 Allergy to other foods; Z87.01 Personal history of pneumonia (recurrent); Z86.73 Personal history of transient ischemic attack (TIA), and cerebral infarction without residual deficits; Z79.890 Hormone replacement therapy; Z79.899 Other long term (current) drug therapy
CPT/HCPCS: A9284; J0456; J0692; J0696; J1644; J1940; J2270; J7050; Q3014

== ENCOUNTER 2024-04-28 20:11 | Emergency (ER) | payer MEDICARE ==
[~2024-04-28] VITALS: Ht 149.9 cm; Wt 61.4 kg
[~2024-04-28 20:11] MED LIST changes: +AMOXICILLIN/CLA1 TA1 PO; +ENTRESTO 24 MG1 EACH PO; +SALONPAS1 EACH TP
[2024-04-28 20:27] VITALS: TEMP 98.9
[2024-04-28 21:49] LABS: BASO # 0.1 K/mm3 (0.0-0.2); BASO % 1.1 % (0.0-2.0); EOS # 0.3 K/mm3 (0.0-0.7); EOS % 3.3 % (0.0-4.0); GRAN # 6.1 K/mm3 (1.4-6.5); GRAN % 71.7 % (42.2-75.2); HEMOGLOBIN 10.5 g/dl (12.5-16.0); LYMPH # 1.5 K/mm3 (1.2-3.4); LYMPH % 17.2 % (20.0-51.0); MEAN CELL VOLUME 99 fl (80.0-100.0); MEAN CORPUSCULAR HEMOGLOBIN 30 pg (27-31); MEAN CORPUSCULAR HGB CONC 30 g/dl (33.0-37.0); MEAN PLATELET VOLUME 9.7 fl (7.4-10.4); MONO # 0.5 K/mm3 (0.1-0.6); MONO % 6.3 % (1.7-9.3); PLATELET COUNT 328 K/mm3 (130-400); RED BLOOD COUNT 3.55 M/mm3 (4.10-5.30); REDCELL DISTRIBUTION WIDTH-CV 17.7 % (11.5-14.5)
[2024-04-28 22:09] LABS: BILIRUBIN,TOTAL 0.3 mg/dL (0.2-1.2); CALCIUM 7.8 mg/dL (8.4-10.2); CREATININE, serum 6.72 mg/dL (0.57-1.11); POTASSIUM 4.2 mEq/L (3.5-4.5); TOTAL PROTEIN 7.1 g/dl (6.2-8.1)
[2024-04-28 22:16] LABS: TROPONIN-I 0.172 ng/mL (0.00-0.033)
[2024-04-28 22:31] LABS: COLLECTION METHOD CATHETER
[2024-04-28 22:42] LABS: PH 8.5 (5.0-8.5); URINE APPEARANCE CLEAR (CLEAR/HAZY); URINE BLOOD 2+ (NEGATIVE); URINE COLOR YELLOW (YELLOW); URINE GLUCOSE TRACE (NEGATIVE); URINE KETONE NEGATIVE (NEGATIVE); URINE NITRATE NEGATIVE (NEGATIVE); URINE PROTEIN(semi-quant) 3+ (NEGATIVE); URINE UROBILINOGEN 0.2 E.U/dL (0.2-1.0)
[2024-04-29 01:28] VITALS: BP 166/85; PULSE 61
== END 2024-04-29 01:32 | disposition home or self-care (01) ==
LOC: COL.ER 20:11
PROVIDERS: Nurse Practitioner Primary Care
DX: R53.1 Weakness (principal); R53.83 Other fatigue; I12.0 Hypertensive chronic kidney disease with stage 5 chronic kidney disease or end stage renal disease; N18.6 End stage renal disease; Z99.2 Dependence on renal dialysis; Z86.73 Personal history of transient ischemic attack (TIA), and cerebral infarction without residual deficits

== ENCOUNTER 2024-05-02 13:33 | Inpatient (IN) | payer MEDICARE ==
[~2024-05-02] VITALS: Ht 149.9 cm; Wt 65.5 kg
[2024-05-02 14:45] LABS: BASO # 0.1 K/mm3 (0.0-0.2); BASO % 0.7 % (0.0-2.0); EOS # 0.4 K/mm3 (0.0-0.7); EOS % 3.2 % (0.0-4.0); GRAN # 8.1 K/mm3 (1.4-6.5); GRAN % 74.3 % (42.2-75.2); HEMOGLOBIN 10.7 g/dl (12.5-16.0); LYMPH # 1.7 K/mm3 (1.2-3.4); LYMPH % 15.4 % (20.0-51.0); MEAN CELL VOLUME 98 fl (80.0-100.0); MEAN CORPUSCULAR HEMOGLOBIN 30 pg (27-31); MEAN CORPUSCULAR HGB CONC 31 g/dl (33.0-37.0); MONO # 0.7 K/mm3 (0.1-0.6); MONO % 6.1 % (1.7-9.3); PLATELET COUNT 335 K/mm3 (130-400); RED BLOOD COUNT 3.56 M/mm3 (4.10-5.30); REDCELL DISTRIBUTION WIDTH-CV 17.8 % (11.5-14.5)
[2024-05-02 14:47] LABS: HEMATOCRIT 34.9 % (37.0-47.0)
[2024-05-02 14:50] LABS: PROTHROMBIN TIME 10.8 SECONDS (9.7-12.8)
[2024-05-02 15:04] LABS: BILIRUBIN,TOTAL 0.3 mg/dL (0.2-1.2); CALCIUM 8.1 mg/dL (8.4-10.2); CREATININE, serum 9.67 mg/dL (0.57-1.11); POTASSIUM 5.7 mEq/L (3.5-4.5); TOTAL PROTEIN 6.8 g/dl (6.2-8.1)
[2024-05-02 15:55] LABS: THYROID STIMULATING HORMONE 95.907 uIU/mL (0.350-4.940)
[2024-05-02 16:25] LABS: TROPONIN-I 0.165 ng/mL (0.00-0.033)
[2024-05-02] MEDS ORDERED: Furosemide 80 MG TAB PO SCH (16:50)
[2024-05-02] MEDS ORDERED: ZOFRAN 4MG T4 MG/TAB PO (17:00)
[2024-05-02] MEDS ORDERED: Sodium Zirconium Cyclosilicate for Oral Susp 10 GM PACKET PO ONE (17:00)
[2024-05-02 19:58] VITALS: BP 165/66; PULSE 69; TEMP 98.8
[2024-05-02 20:39] VITALS: BP_SYST 165
--- NOTE | 2024-05-02 21:00 | NUR ---
Pt arrived to medical floor from ED by bed. Report received from CANDI Lopez. Admission assessment and intake completed. VSS. Oriented pt to room, call light, and bathroom. Fall precautions implemented. Pt brought in home medication bottles. Medications labeled and in med room at this time. Med rec completed. INT to Lt wrist patent with no swelling, redness, or drainage. 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 Pt has no request at this time. Call light within reach and fall precautions in place.
[2024-05-02 23:43] VITALS: BP 139/67; PULSE 58; TEMP 97.4
[2024-05-03] VITALS (12 sets, daily range): BP systolic 139–172; BP diastolic 60–75; PULSE 57–79; TEMP 97.7–98.7
[2024-05-03] MEDS ORDERED: Heparin 5,000 UNITS/ML 1 ML VIAL SQ SCH
[2024-05-03 06:09] LABS: BASO # 0.1 K/mm3 (0.0-0.2); BASO % 0.8 % (0.0-2.0); EOS # 0.3 K/mm3 (0.0-0.7); EOS % 3.3 % (0.0-4.0); GRAN # 6.6 K/mm3 (1.4-6.5); GRAN % 66.8 % (42.2-75.2); LYMPH # 2.2 K/mm3 (1.2-3.4); LYMPH % 22.5 % (20.0-51.0); MEAN CELL VOLUME 97 fl (80.0-100.0); MEAN CORPUSCULAR HGB CONC 31 g/dl (33.0-37.0); MEAN PLATELET VOLUME 9.9 fl (7.4-10.4); MONO # 0.6 K/mm3 (0.1-0.6); MONO % 6.3 % (1.7-9.3); PLATELET COUNT 304 K/mm3 (130-400); RED BLOOD COUNT 3.31 M/mm3 (4.10-5.30); REDCELL DISTRIBUTION WIDTH-CV 17.7 % (11.5-14.5)
[2024-05-03 06:12] LABS: HEMATOCRIT 32.2 % (37.0-47.0); HEMOGLOBIN 9.9 g/dl (12.5-16.0); MEAN CORPUSCULAR HEMOGLOBIN 30 pg (27-31)
[2024-05-03] MEDS ORDERED: Levothyroxine 0.1 MG,Levothyroxine 0.075 MG PO SCH (07:00)
[2024-05-03 07:38] LABS: ALBUMIN 1.8 g/dL (3.4-4.8); BILIRUBIN,TOTAL 0.3 mg/dL (0.2-1.2); CALCIUM 7.9 mg/dL (8.4-10.2); CREATININE, serum 10.57 mg/dL (0.57-1.11); TOTAL PROTEIN 6.1 g/dl (6.2-8.1)
[2024-05-03 07:42] LABS: POTASSIUM 6.1 mEq/L (3.5-4.5)
--- NOTE | 2024-05-03 07:52 | NUR ---
CRITICAL LAB VALUE OF K+ 6.1. THIS RN CALLED [facility]. SEE NEW ORDERS
[2024-05-03] MEDS ORDERED: Dextrose 50% Water 25 GM/50 ML SYRINGE IV ONE (08:00)
[2024-05-03] MEDS ORDERED: Insulin Regular Human (NovoLIN R/HumuLIN R) IV ONE (08:00)
[2024-05-03] MEDS ORDERED: Influenza Virus Vaccine, Hi-Dose Triv '24-25 (65 YR+) 0.5 ML SYRINGE IM SCH (09:00)
[2024-05-03] MEDS ORDERED: COLESTID 1GM1 G PO (09:07)
[2024-05-03] MEDS ORDERED: Acetaminophen 325 MG TAB PO PRN (10:00)
[2024-05-03] MEDS ORDERED: Colestipol 1 G TAB PO SCH (10:09)
[2024-05-03] MEDS ORDERED: traMADol 50 MG TAB PO PRN (10:30)
[2024-05-03] MEDS ORDERED: Sevelamer Carbonate 800 MG TAB PO PRN (10:30)
[2024-05-03] MEDS ORDERED: PEPCID AC 10MG10 MG PO (10:49)
[2024-05-03] MEDS ORDERED: LIPITOR 80MG80 MG PO (10:53)
[2024-05-03] MEDS ORDERED: NEURONTIN300 MG/CAP PO (10:53)
[2024-05-03] MEDS ORDERED: FIBERCON PO (10:54)
[2024-05-03] MEDS ORDERED: OMEGA-3 1000 MG1 CAP PO (10:54)
[2024-05-03] MEDS ORDERED: SODIUM BICARBO650 MG PO (11:01)
[2024-05-03] MEDS ORDERED: RENVELA800 MG PO (11:03)
[2024-05-03] MEDS ORDERED: Heparin 1,000 UNITS/ML 10 ML Multi-Dose VIAL IV SCH (11:45)
[2024-05-03] MEDS ORDERED: NS 1,000 ML IV SCH (11:45)
[2024-05-03] MEDS ORDERED: Sevelamer Carbonate 800 MG TAB PO SCH (12:00)
--- NOTE | 2024-05-03 12:01 | NUR ---
PATIENT DOWN TO HEMODIALYSIS VIA BED. ALERT AND ORIENTED.
--- NOTE | 2024-05-03 15:28 | NUR ---
Dialysis Note Pt arrived via Bed. Uf goal set for 36.0 kg and increased to 3.5 kg. Pt tolerated tx well and dcd back to room via bed without complaints.
--- NOTE | 2024-05-03 16:18 | NUR ---
Offshoring Manager met with patient to discuss discharge planning. Patient lives in [place] with her partner, Boni (ph#[phone]) and sees Dr. Arana for primary care. Patient stated she saw Dr. Arana "the other day" for a hospital follow up since she was recently hospitalized in this facility. Patient was discharged home with Home Health, however patient now feels she needs SNF. Patient has a DPOA-HC in EMR designating her son, Elieser (ph#[phone]). Patient was provided Medicare.gov list of SNF options and although patient would prefer an in network facility in [place], she is also open to out of town options. Referrals were sent to [facility], which are in [place] and in network. During previous admission, [facility], and [facility] were interested in taking patient. OMAR faxed referral to all three for review. [facility] declined. Discharge Plan: SNF
[2024-05-03 16:27] LABS: HEPATITIS B SURFACE ANTIBODY <2.0 (()); HEPATITIS B SURFACE ANTIGEN Negative (Negative); HEPATITIS C VIRUS ANTIBODY Negative (Nonreactiv)
--- NOTE | 2024-05-03 19:47 | NUR ---
Bedside report received from CANDI Madera. Pt awake in bed with no complaints. Call light within reach and fall precautions in place.
[2024-05-03] MEDS ORDERED: traZODone 100 MG TAB PO SCH (21:00)
[2024-05-03] MEDS ORDERED: amLODIPine 5 MG TAB PO SCH (21:00)
--- NOTE | 2024-05-03 22:52 | NUR ---
Pt resting in bed with eyes closed and no complaints. Shift assessment completed. VSS. Pt refusing to wear hospital ID band and restricted extremity bracelet at this time. 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 INT to Lt wrist patent with no swelling, redness, or drainage. Pt has no complaints of pain. Fall precautions in place. Call light within reach.
[2024-05-04] VITALS (12 sets, daily range): BP systolic 138–156; BP diastolic 62–71; PULSE 59–73; TEMP 97.6–99.3
[2024-05-04] MEDS ORDERED: Heparin 1,000 UNITS/ML 10 ML Multi-Dose VIAL IV SCH (08:00)
[2024-05-04] MEDS ORDERED: NS 1,000 ML IV SCH (08:00)
--- NOTE | 2024-05-04 08:35 | NUR ---
PATIENT DOWN TO DIALYSIS VIA BED. ALERT, BUT WAS CONFUSED WHEN SHE AROSE THAT SHE WAS IN THE HOSPITAL.
[2024-05-04 08:54] LABS: BASO # 0.1 K/mm3 (0.0-0.2); BASO % 0.7 % (0.0-2.0); EOS # 0.3 K/mm3 (0.0-0.7); EOS % 2.9 % (0.0-4.0); GRAN # 6.3 K/mm3 (1.4-6.5); GRAN % 65.2 % (42.2-75.2); LYMPH # 2.4 K/mm3 (1.2-3.4); LYMPH % 24.3 % (20.0-51.0); MEAN CELL VOLUME 97 fl (80.0-100.0); MEAN CORPUSCULAR HGB CONC 31 g/dl (33.0-37.0); MONO # 0.6 K/mm3 (0.1-0.6); MONO % 6.6 % (1.7-9.3); PLATELET COUNT 286 K/mm3 (130-400); RED BLOOD COUNT 3.06 M/mm3 (4.10-5.30); REDCELL DISTRIBUTION WIDTH-CV 18.1 % (11.5-14.5)
[2024-05-04 08:55] LABS: HEMATOCRIT 29.7 % (37.0-47.0); HEMOGLOBIN 9.2 g/dl (12.5-16.0); MEAN CORPUSCULAR HEMOGLOBIN 30 pg (27-31)
[2024-05-04 09:14] LABS: CALCIUM 7.8 mg/dL (8.4-10.2); CREATININE, serum 6.94 mg/dL (0.57-1.11); POTASSIUM 4.8 mEq/L (3.5-4.5)
[2024-05-04] MEDS ORDERED: Omega-3 Fatty Acid Esters (OTC) 1,000 MG CAP PO SCH (11:02)
--- NOTE | 2024-05-04 12:31 | NUR ---
PATIENT BACK FROM DIALYSIS VIA BED AT APPROX 1200. PATIENT IS ASLEEP. VSS. REFUSES MEDICATIONS.
--- NOTE | 2024-05-04 14:07 | NUR ---
generator worker faxed clinical updates to [facility]. OMAR secure emailed referral to [facility]. OMAR was notified [facility] is unable to accept patient due to them not having staff to transport patient to and from dialysis three days a week. Discharge plan: SNF
--- NOTE | 2024-05-04 14:10 | NUR ---
farmworker poultry left a voicemail for Efrain from [facility]. Discharge plan: SNF
--- NOTE | 2024-05-04 14:26 | NUR ---
shell worker attempted to contact patient's son, Elieser, no answer. SW left a detailed voicemail stating patient has requested placement and that they are sending in [place] and surrounding areas. DIscharge plan: SNF
--- NOTE | 2024-05-04 14:45 | NUR ---
D: Acid Pumper stopped by room on rounds. A: Pt was resting and content. Very tired, but has no needs right now. P: Acid Pumper informed pt that if she needed anything from the door slinger area to let her nurse know. Acid Pumper will follow up as needed.
--- NOTE | 2024-05-04 15:35 | NUR ---
Collins at [facility] advised they can accept referral once auth is received. Discharge Plan: [facility] SNF, pending Deric Auth
--- NOTE | 2024-05-04 17:27 | NUR ---
CARBON BRUSH MAKER- PATIENT REPORTS SON WOULD LIKE TO SPEAK TO OMAR. NAME IS ADIS, PHONE # [phone].
--- NOTE | 2024-05-04 18:00 | NUR ---
PATIENT DOES NOT WANT TYLENOL AT THIS TIME. PATIENT SAYS SHE FEELS OKAY, JUST TIRED.
--- NOTE | 2024-05-04 18:07 | NUR ---
PCT REPORTED TO THIS RN THAT PATIENT FELT CLAMMY. TEMP 99.1. THIS RN ASKED PCT TO OBTAIN BLOOD GLUCOSE LEVEL. BG LEVEL 133. WILL ASK PATIENT IF SHE WANTS TYLENOL.
--- NOTE | 2024-05-04 20:00 | NUR ---
Pt. incontinent of stool- small, soft formed BM. Pericare provided and linens changed. Shift assessment complete at this time . Pt. is A&O x4 but requires re-orienting upon waking. This is consistant with bedside shift report. Upon auscultation, lung sounds are clear over bilateral upper lobes but diminished at bases. Pt. is on 2L O2/min via nasal cannula. Coxxyx area is reddened and pt. has very small abrasion at the coccyx. Mepilex applied. Pt. denies pain at this time. No further outstanding findings. Call light in reach and fall precautions in place.
[2024-05-04] MEDS ORDERED: Gabapentin 300 MG CAP PO SCH (21:00)
[2024-05-04] MEDS ORDERED: Atorvastatin 80 MG TAB PO SCH (21:00)
[2024-05-05] VITALS (11 sets, daily range): BP systolic 138–165; BP diastolic 62–72; PULSE 56–74; TEMP 98–99.3
[2024-05-05 06:28] LABS: MEAN CELL VOLUME 98 fl (80.0-100.0); MEAN CORPUSCULAR HGB CONC 31 g/dl (33.0-37.0); MEAN PLATELET VOLUME 9.9 fl (7.4-10.4); PLATELET COUNT 255 K/mm3 (130-400); RED BLOOD COUNT 2.93 M/mm3 (4.10-5.30); REDCELL DISTRIBUTION WIDTH-CV 17.7 % (11.5-14.5)
[2024-05-05 06:41] LABS: HEMATOCRIT 28.6 % (37.0-47.0); HEMOGLOBIN 8.8 g/dl (12.5-16.0); MEAN CORPUSCULAR HEMOGLOBIN 30 pg (27-31)
[2024-05-05 06:43] LABS: CALCIUM 8.1 mg/dL (8.4-10.2); CREATININE, serum 5.52 mg/dL (0.57-1.11); POTASSIUM 4.6 mEq/L (3.5-4.5)
--- NOTE | 2024-05-05 07:16 | NUR ---
Pt. resting in bed w/ call light in reach and fall precautions in place. Bedside report given to CANDI Madera.
--- NOTE | 2024-05-05 11:02 | NUR ---
OMAR contacted [facility] on pending status/transfer for patients care. Technical Adjuster with facility ([facility]) informed SW that patient is cleared clinically for care but still pending authorization with her insurance at this time. OMAR and care management team will continue to follow for updates.
--- NOTE | 2024-05-05 19:00 | NUR ---
Bedside report received from CANDI Madera. Pt awake in bed eating dinner with no complaints. Call light within reach and fall precautions in place.
[2024-05-06] VITALS (13 sets, daily range): BP systolic 127–168; BP diastolic 60–82; PULSE 65–103; TEMP 97.1–99.2
--- NOTE | 2024-05-06 03:25 | NUR ---
Pt resting in bed with eyes closed sleeping. Shift assessment completed at beginning of shift. VSS. Pt incontinent x3 soft BM, assisted pt with pericare and bed change. INT to Lt wrist patent with no swelling, redness, or drainage. AV Fistula to RUE ausculatated noting thrill and bruit. Pt denies pain rating 0/10. Telemetry in [address]. Pt has no request at this time. Call light within reach and fall precautions in place.
[2024-05-06 08:44] LABS: BASO # 0.1 K/mm3 (0.0-0.2); BASO % 0.6 % (0.0-2.0); EOS # 0.3 K/mm3 (0.0-0.7); EOS % 2.9 % (0.0-4.0); GRAN # 6.9 K/mm3 (1.4-6.5); GRAN % 68.4 % (42.2-75.2); LYMPH # 2.1 K/mm3 (1.2-3.4); LYMPH % 21.3 % (20.0-51.0); MEAN CELL VOLUME 100 fl (80.0-100.0); MEAN CORPUSCULAR HGB CONC 30 g/dl (33.0-37.0); MEAN PLATELET VOLUME 9.9 fl (7.4-10.4); MONO # 0.6 K/mm3 (0.1-0.6); MONO % 6.2 % (1.7-9.3); PLATELET COUNT 277 K/mm3 (130-400); RED BLOOD COUNT 2.97 M/mm3 (4.10-5.30); REDCELL DISTRIBUTION WIDTH-CV 17.7 % (11.5-14.5)
[2024-05-06 08:45] LABS: HEMATOCRIT 29.6 % (37.0-47.0); HEMOGLOBIN 8.9 g/dl (12.5-16.0); MEAN CORPUSCULAR HEMOGLOBIN 30 pg (27-31)
[2024-05-06 09:26] LABS: CALCIUM 8.2 mg/dL (8.4-10.2); CREATININE, serum 6.61 mg/dL (0.57-1.11)
[2024-05-06] MEDS ORDERED: Heparin 1,000 UNITS/ML 10 ML Multi-Dose VIAL IV SCH (10:00)
[2024-05-06 15:25] LABS: CLOSTRIDIUM DIFF A/B NEG
--- NOTE | 2024-05-06 19:29 | NUR ---
Bedside report received from CANDI Madera. Pt awake in bed with no complaints. Call light within reach and fall precautions in place.
--- NOTE | 2024-05-06 20:55 | NUR ---
Pt awake in bed incontinent of loose stool. Assisted pt with pericare and provided linen change. Redness to coccyx noted with blanching. Barrier cream applied following pericare and mepilex placed. Shift assessment completed. VSS. INT to Lt wrist patent, flushes without complications. AV fisutla to RUE patent, thrill and bruit auscultated. Pt has no complaints at this time. Contact precautions in place. Call light within reach and fall precautions in place.
[2024-05-07] VITALS (9 sets, daily range): BP systolic 132–159; BP diastolic 54–59; PULSE 60–76; TEMP 97.9–98.3
--- NOTE | 2024-05-07 05:10 | NUR ---
Telemonitor Herbert requested lead check on pt. Lead check performed and pt back on telemetry at this time.
[2024-05-07] MEDS ORDERED: Heparin 1,000 UNITS/ML 10 ML Multi-Dose VIAL IV SCH (08:15)
--- NOTE | 2024-05-07 08:30 | NUR ---
Pt in dialysis at this time
[2024-05-07] MEDS ORDERED: Vancomycin 125 MG CAP PO SCH (08:45)
[2024-05-07] MEDS ORDERED: VANCOCIN H125 MG/CAP PO (09:59)
[2024-05-07 10:07] LABS: BASO # 0.1 K/mm3 (0.0-0.2); BASO % 0.8 % (0.0-2.0); EOS # 0.4 K/mm3 (0.0-0.7); EOS % 4.2 % (0.0-4.0); GRAN # 6.6 K/mm3 (1.4-6.5); GRAN % 65.4 % (42.2-75.2); LYMPH # 2.3 K/mm3 (1.2-3.4); MEAN CELL VOLUME 97 fl (80.0-100.0); MEAN CORPUSCULAR HGB CONC 31 g/dl (33.0-37.0); MEAN PLATELET VOLUME 10.3 fl (7.4-10.4); MONO # 0.6 K/mm3 (0.1-0.6); MONO % 6.3 % (1.7-9.3); PLATELET COUNT 262 K/mm3 (130-400); REDCELL DISTRIBUTION WIDTH-CV 17.2 % (11.5-14.5)
[2024-05-07 10:13] LABS: HEMATOCRIT 30.1 % (37.0-47.0); HEMOGLOBIN 9.2 g/dl (12.5-16.0); MEAN CORPUSCULAR HEMOGLOBIN 30 pg (27-31)
[2024-05-07 10:34] LABS: CALCIUM 8.4 mg/dL (8.4-10.2); CREATININE, serum 7.94 mg/dL (0.57-1.11); POTASSIUM 5.4 mEq/L (3.5-4.5)
--- NOTE | 2024-05-07 10:48 | NUR ---
Vacuum Cleaner Operator sent clinical updates via secure email to Collins at [facility]. OMAR also received a call from patient's son, Elieser and provided an update on discharge plan.
[2024-05-07] MEDS ORDERED: SYNTHROID0.112 MG/T PO (10:54)
--- NOTE | 2024-05-07 11:23 | NUR ---
Dialysis Note Pt arrived via bed uf goal was set for 3.0 pt pulled 2.0 and ended tx 54 min early d/t loose stool. Rn notified
--- NOTE | 2024-05-07 12:00 | NUR ---
Medications given by nursing program chair. Notifed her and her instructor that the heparin did not save when it was scanned
--- NOTE | 2024-05-07 12:27 | NUR ---
OMAR attended clinical rounds. Patient stable for discharge and per Collins at [facility] authorization is approved for return to [facility]. [facility] scheduled transport for 1300 after patient completes dialysis. OMAR met with patient to inform of discharge plan and review Medicare IM form. Patient undergoing dialysis at time of meeting and gave verbal consent for OMAR to sign IM form on her behalf. Original on chart and copy to patient. RN notified of discharge transport time. Discharge orders and clinical updates sent via secure email. Discharge plan: [facility] SNF
--- NOTE | 2024-05-07 12:30 | NUR ---
Pt back in her room from dialysis. She is aware that she will be going to [facility] today around 1300. Pt sitting up in bed eating some lunch at this time. No complaints of pain. Pt does continue to have liquid stools. Mepilex dressing to her bottom
--- NOTE | 2024-05-07 13:26 | NUR ---
Transportation here to get pt, attempted to call to give report but there was no answer.
--- NOTE | 2024-05-07 13:34 | NUR ---
Transporation has arrived, pt left for [facility]. Called report to Nidia
--- NOTE | 2024-05-07 15:16 | NUR ---
Perfusionist contacted patient's son, Elieser to provide transport time to [facility] today.
[2024-05-07] MEDS ORDERED: ULTRAM 50MG TAB50 MG PO (15:46)
== END 2024-05-07 13:35 | DRG 640 ==
LOC: COL.ER 13:33 → MEDICAL 17:27
PROVIDERS: Family Medicine; Nurse Practitioner Family; Physician Assistant; ADMIT Internal Medicine
DX: E87.70 Fluid overload, unspecified (principal); N18.6 End stage renal disease; I13.2 Hypertensive heart and chronic kidney disease with heart failure and with stage 5 chronic kidney disease, or end stage renal disease; A04.72 Enterocolitis due to Clostridium difficile, not specified as recurrent; I50.30 Unspecified diastolic (congestive) heart failure; E87.5 Hyperkalemia; Z91.158 Patient's noncompliance with renal dialysis for other reason; E78.5 Hyperlipidemia, unspecified; I27.20 Pulmonary hypertension, unspecified; G47.00 Insomnia, unspecified; R74.01 Elevation of levels of liver transaminase levels; D63.1 Anemia in chronic kidney disease; R79.89 Other specified abnormal findings of blood chemistry; R29.6 Repeated falls; E21.3 Hyperparathyroidism, unspecified; F41.9 Anxiety disorder, unspecified; F32.A Depression, unspecified; G89.4 Chronic pain syndrome; E03.9 Hypothyroidism, unspecified; Z86.69 Personal history of other diseases of the nervous system and sense organs; Z79.899 Other long term (current) drug therapy; Z88.2 Allergy status to sulfonamides; Z88.3 Allergy status to other anti-infective agents; Z88.8 Allergy status to other drugs, medicaments and biological substances; Z79.890 Hormone replacement therapy; Z99.2 Dependence on renal dialysis; R05.9 Cough, unspecified; R19.7 Diarrhea, unspecified; I25.2 Old myocardial infarction; Z86.73 Personal history of transient ischemic attack (TIA), and cerebral infarction without residual deficits
CPT/HCPCS: A9270; G0378; J1644; J1815; J7030; Q3014